=== PATIENT | female | born 1940 | race Caucasian/White ===

== ENCOUNTER 2016-11-23 13:17 | Day surgery (SDC) | payer MEDICARE ==
--- NOTE | 2016-11-24 16:11 | Operative Note ---
DATE OF PROCEDURE: 11/23/2016 PREOPERATIVE DIAGNOSIS: RECURRENT URINARY TRACT INFECTIONS. POSTOPERATIVE DIAGNOSIS: RECURRENT URINARY TRACT INFECTIONS. SURGEON: JOSE WETZEL M.D. PROCEDURE: CYSTOSCOPY. ANESTHESIA: LOCAL. INDICATIONS: This 76-year-old female with the above history. She already had a CT scan of the abdomen and pelvis showing no obvious urinary tract abnormality. She presents today for cystoscopy to complete her evaluation. PROCEDURE: Pre-Op informed consent was obtained. Antibiotics were given. The patient was brought to the Procedure Room at [facility], placed in a modified frog-leg position with the genitalia prepped and draped sterilely. Flexible cystoscopy was carried performed. The urethra and bladder were inspected carefully. Urine was immediately aspirated upon entry to the bladder and passed off the field for culture. The bladder was then inspected. No abnormality was seen. The ureteral orifices had normal appearance and positioning and each were effluxing clear urine. The scope was then retroflexed and no bladder neck abnormality was seen. The scope was then withdrawn. Pelvic examination was carried out. The bladder and vaginal vault appeared well- supported except for the patient does have some rectocele formation noted. The procedure was then terminated. The patient tolerated quite well. PLAN: The patient has no obvious source of recurring infection. She has not had any recurrence of her symptoms since our last visit and I have advised follow- up to review her symptoms in six months. We will follow the urine culture sent today as well. Jose Wetzel M.D. Date & Time cc: Dr. Tian Phoenix JOB NUMBER: [id number] [facility]
== END 2016-11-23 14:49 | disposition home or self-care (01) ==
LOC: HOP 13:17
PROVIDERS: ATTEND Urology
DX: Z87.440 Personal history of urinary (tract) infections (principal)

== ENCOUNTER 2017-03-13 15:58 | Emergency (ER) | payer MEDICARE ==
--- NOTE | 2017-03-13 16:28 | Emergency Department Record ---
History of Present Illness - General Chief complaint: Extremity Problem Stated complaint: RT ARM PAIN Time Seen by Provider: 03/13/17 16:23 Source: Patient Mode of Arrival: Ambulatory Limitations: No limitations - History of Present Illness Initial comments: 76 yo female presents after a fall while gardening. She injured her right wrist /forearm. She is right handed. She denies any other injury. No headache or neck pain. No lacerations. No numbness or tingling. No history of prior wrist fracture. MD Complaint: Extremity pain, Joint pain Onset/Timin -: Hour(s) Location: Right, Forearm History of Same: No Radiation: None Severity scale (1-10): 8 Quality: Aching Consistency: Constant Improves with: Nothing Worsens with: Palpation, Weight bearing Associated Symptoms: Denies other symptoms - Related Data Home Medications Medication Instructions Recorded Confirmed Last Taken Carvedilol [Coreg] 12.5 mg PO BID 12/28/15 03/13/17 Unknown Clopidogrel Bisulfate [Plavix] 75 mg PO DAILY 12/28/15 03/13/17 Unknown Furosemide [Furosemide] 20 mg PO BID 12/28/15 03/13/17 Unknown Isosorbide Mononitrate [Imdur] 30 mg PO DAILY 12/28/15 03/13/17 Unknown Lisinopril [Lisinopril] 2.5 mg PO DAILY 12/28/15 03/13/17 Unknown Lorazepam [Lorazepam] 0.5 mg PO DAILY 12/28/15 03/13/17 Unknown Nitroglycerin [Nitrostat] 0.4 mg SL DAILY PRN 12/28/15 03/13/17 Unknown Pantoprazole Sodium [Protonix] 40 mg PO BID 12/28/15 03/13/17 Unknown Temazepam [Restoril] 15 mg PO QHS 12/28/15 03/13/17 Unknown Verapamil HCl [Calan] 240 mg PO BID 12/28/15 03/13/17 05/27/16 Previous Rx's Medication Instructions Recorded Hydrocodone/Acetaminophen [[place] 1 each PO Q8H #12 tablet 03/13/17 5-325 Tablet] Allergies Allergy/AdvReac Type Severity Reaction Status Date / Time cinoxacin [From Cinobac] Allergy HYPERSENSIT Verified 12/28/15 15:10 IVITY clindamycin Allergy HYPERSENSIT Verified 12/28/15 15:10 IVITY clindamycin HCl Allergy HYPERSENSIT Verified 12/28/15 15:10 [From Cleocin] IVITY clindamycin palmitate HCl Allergy HYPERSENSIT Verified 12/28/15 15:10 [From Cleocin] IVITY clindamycin phosphate Allergy HYPERSENSIT Verified 12/28/15 15:10 [From Cleocin] IVITY polymyxin B Allergy HYPERSENSIT Verified 12/28/15 15:10 IVITY Sulfa (Sulfonamide Allergy HYPERSENSIT Verified 12/28/15 15:10 Antibiotics) IVITY trazodone Allergy HYPERSENSIT Verified 12/28/15 15:10 IVITY Travel Screening - Travel/Exposure Within Last 30 Days Have you traveled within the last 30 days?: No Review of Systems Constitutional: Denies: Chills, Fever, Malaise, Weakness Eyes: Denies: Eye discharge, Eye pain, Photophobia ENT: Denies: Congestion, Throat pain Respiratory: Denies: Cough, Dyspnea Cardiovascular: Denies: Chest pain, Syncope Endocrine: Denies: Fatigue Gastrointestinal: Denies: Abdominal pain, Diarrhea, Nausea, Vomiting Genitourinary: Denies: Dyspareunia, Dysuria, Urgency Musculoskeletal: Reports: As per HPI, Arthralgia Skin: Reports: As per HPI, Bruising. Denies: Change in color, Rash Neurological: Denies: Headache, Numbness, Vertigo, Weakness Psychiatric: Denies: Anxiety Hematological/Lymphatic: Denies: Blood Clots, Easy bleeding, Easy bruising, Swollen glands Past Medical History - SOCIAL HISTORY Smoking Status: Former smoker Alcohol Use: None Drug Use: None - RESPIRATORY Hx Respiratory Disorders: Yes Hx Pneumonia: Yes - CARDIOVASCULAR Hx Cardio Disorders: Yes Hx Abnormal EKG: Yes Hx Cardiac Cath: Yes Hx Heart Attack: Yes (2011) Hx Hypertension: Yes - NEURO Hx Neuro Disorders: Yes Hx Headaches: Yes Hx TIA: Yes (2011) - GI Hx GI Disorders: Yes Hx Reflux: Yes Hx Ulcer: Yes - Hx Genitourinary Disorders: Yes Hx Kidney Stones: Yes Hx UTI: Yes - ENDOCRINE Hx Endocrine Disorders: Yes Hx Thyroid Disease: Yes (hyper) - MUSCULOSKELETAL Hx Musculoskeletal Disorders: Yes - PSYCH Hx Psych Problems: Yes Hx Anxiety: Yes Hx Depression: Yes - HEMATOLOGY/ONCOLOGY Hx Hematology/Oncology Disorders: Yes Hx Blood Transfusions: Yes Hx Blood Transfusion Reaction: No Family Medical History Any Significant Family History?: No Physical Exam - General General Appearance: Alert, Oriented x3, Cooperative, No acute distress Limitations: No limitations - Head Head exam: Normal inspection. negative: Atraumatic, Normocephalic Head exam detail: negative: Abrasion, Contusion, Hematoma, Laceration - Eye Eye exam: Normal appearance, PERRL. negative: Conjunctival injection, Periorbital swelling - ENT ENT exam: Normal exam, Mucous membranes moist Ear exam: Normal external inspection Nasal Exam: Normal inspection Mouth exam: Normal external inspection Teeth exam: Normal inspection - Neck Neck exam: Normal inspection, Full ROM. negative: Tenderness - Respiratory Respiratory exam: Normal lung sounds bilaterally. negative: Respiratory distress - Cardiovascular Cardiovascular Exam: Regular rate, Normal rhythm, Normal heart sounds Peripheral Pulses: 2+: Radial (R) - GI/Abdominal GI/Abdominal exam: Soft. negative: Guarding, Rebound, Tenderness - Rectal Rectal exam: Deferred - exam: Deferred - Extremities Extremities exam: Full ROM, Normal capillary refill. negative: Normal inspection (swelling right wrist), Tenderness Image of Full Body: 1 - mild swelling with faint bruising and tenderness, no elbow, shoulder tenderness - Back Back exam: Reports: Normal inspection, Full ROM. Denies: CVA tenderness (R), CVA tenderness (L), Muscle spasm, Paraspinal tenderness, Rash noted, Tenderness , Vertebral tenderness - Neurological Neurological exam: Alert, Normal gait, Oriented X3. negative: Altered, Motor sensory deficit - Psychiatric Psychiatric exam: Normal affect, Normal mood. negative: Agitated, Anxious - Skin Skin exam: Dry, Intact, Normal color, Warm. negative: Cyanosis, Diaphoretic, Erythema Course Vital Signs 03/13/17 16:14 Temperature 98.6 F Pulse Rate 64 Respiratory 20 Rate Blood Pressure 152/90 Pulse Ox 96 - Reevaluation(s) Reevaluation #1: The XR was read as negative for fracture She will be placed in a velcro wrist splint for support She was advised to see her doctor in 10 days if any pain persists and to repeat the XR 03/13/17 18:02 Disposition Disposition: Discharge Clinical Impression: Sprain of wrist, right Qualifiers: Encounter type: initial encounter Qualified Code(s): S63.501A - Unspecified sprain of right wrist, initial encounter Disposition: Home, Self-Care Condition: (1) Good Instructions: Wrist Sprain (ED) Additional Instructions: Ice the wrist 2 times daily Use the splint for support and comfort You will need a follow up Xray in 10 days if any pain persists Use a stool softener if you need pain medication Prescriptions: Hydrocodone/Acetaminophen [[place] 5-325 Tablet] 1 each PO Q8H #12 tablet Forms: Patient Portal Access Time of Disposition: 18:06 Quality - Quality Measures Quality Measures: N/A - Blood Pressure Screening View Details: Yes Blood Pressure Classification: Hypertensive Reading Systolic Measurement: 152 Diastolic Measurement: 90 Screening for High Blood Pressure: < Pre-Hypertensive BP, F/U Documented > [ G8950] Pre-Hypertensive Follow-up Interventions: Referral to alternative/primary care provider.
[2017-03-13] MEDS: ACETAMINOPHEN 500 MG TABLET PO ONE (16:50)
--- NOTE | 2017-03-15 11:34 | RADIOLOGY REPORT ---
EXAM: RIGHT WRIST HISTORY: PATIENT FELL ON OUTSTRETCHED RIGHT HAND WITH RIGHT WRIST PAIN. TECHNIQUE: Three views of the right wrist were obtained. Comparison: No prior right wrist series, but comparison is made with the right hand series of 07/15/15. Encounter: Initial. FINDINGS: Some chondrocalcinosis is seen at the wrist also present on the prior hand series. 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 No definite acute fracture or dislocation of the right wrist identified, however, if symptoms persist, a follow-up study in ten to fourteen days time would be suggested to exclude a currently radiographically occult fracture. IMPRESSION: 1. CHONDROCALCINOSIS. 2. 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 3. NO DEFINITE ACUTE FRACTURE OF THE RIGHT WRIST IDENTIFIED. JOB NUMBER: [id number] MTDD
== END 2017-03-13 18:16 | disposition home or self-care (01) ==
LOC: ER 15:58
DX: S63.501A Unspecified sprain of right wrist, initial encounter (principal); W19.XXXA Unspecified fall, initial encounter; Y93.H2 Activity, gardening and landscaping
CPT/HCPCS: 99283

== ENCOUNTER 2017-03-17 10:00 | Emergency (ER) | payer MEDICARE ==
--- NOTE | 2017-03-17 10:26 | Emergency Department Record ---
History of Present Illness - General Chief complaint: Extremity Problem Stated complaint: RT WRIST INJURY Time Seen by Provider: 03/17/17 10:13 Source: Patient Mode of Arrival: Ambulatory Limitations: No limitations - History of Present Illness Initial comments: The patient is here due to increasing R wrist pain. She fell 4 days ago and injured her R wrist. The patient was seen in the ER and had neg xrays. Now the pain is not improved and may be worsening mildly. She denies any new falls or trauma. MD Complaint: Extremity pain Onset/Timin -: Days(s) Location: Right, Other History of Same: Yes Severity scale (1-10): 9 Consistency: Constant Improves with: Nothing Worsens with: Exertion Associated Symptoms: Denies other symptoms - Related Data Home Medications Medication Instructions Recorded Confirmed Last Taken Carvedilol [Coreg] 12.5 mg PO BID 12/28/15 03/17/17 Unknown Clopidogrel Bisulfate [Plavix] 75 mg PO DAILY 12/28/15 03/17/17 Unknown Furosemide [Furosemide] 20 mg PO BID 12/28/15 03/17/17 Unknown Isosorbide Mononitrate [Imdur] 30 mg PO DAILY 12/28/15 03/17/17 Unknown Lisinopril [Lisinopril] 2.5 mg PO DAILY 12/28/15 03/17/17 Unknown Lorazepam [Lorazepam] 0.5 mg PO DAILY 12/28/15 03/17/17 Unknown Nitroglycerin [Nitrostat] 0.4 mg SL DAILY PRN 12/28/15 03/17/17 Unknown Pantoprazole Sodium [Protonix] 40 mg PO BID 12/28/15 03/17/17 Unknown Temazepam [Restoril] 15 mg PO QHS 12/28/15 03/17/17 Unknown Verapamil HCl [Calan] 240 mg PO BID 12/28/15 03/17/17 05/27/16 Previous Rx's Medication Instructions Recorded Hydrocodone/Acetaminophen [[place] 1 each PO Q8H #12 tablet 03/13/17 5-325 Tablet] Hydrocodone/Acetaminophen [[place] 1 - 2 each PO QID #20 tablet 03/17/17 5-325 Tablet] Allergies Allergy/AdvReac Type Severity Reaction Status Date / Time cinoxacin [From Cinobac] Allergy HYPERSENSIT Verified 12/28/15 15:10 IVITY clindamycin Allergy HYPERSENSIT Verified 12/28/15 15:10 IVITY clindamycin HCl Allergy HYPERSENSIT Verified 12/28/15 15:10 [From Cleocin] IVITY clindamycin palmitate HCl Allergy HYPERSENSIT Verified 12/28/15 15:10 [From Cleocin] IVITY clindamycin phosphate Allergy HYPERSENSIT Verified 12/28/15 15:10 [From Cleocin] IVITY polymyxin B Allergy HYPERSENSIT Verified 12/28/15 15:10 IVITY Sulfa (Sulfonamide Allergy HYPERSENSIT Verified 12/28/15 15:10 Antibiotics) IVITY trazodone Allergy HYPERSENSIT Verified 12/28/15 15:10 IVITY Travel Screening - Travel/Exposure Within Last 30 Days Have you traveled within the last 30 days?: No Review of Systems Constitutional: Denies: Chills, Fever Eyes: Denies: Eye discharge ENT: Denies: Congestion Respiratory: Denies: Cough, Dyspnea Past Medical History - SOCIAL HISTORY Smoking Status: Former smoker Alcohol Use: None Drug Use: None - RESPIRATORY Hx Respiratory Disorders: Yes Hx Pneumonia: Yes - CARDIOVASCULAR Hx Cardio Disorders: Yes Hx Abnormal EKG: Yes Hx Cardiac Cath: Yes Hx Heart Attack: Yes (2011) Hx Hypertension: Yes - NEURO Hx Neuro Disorders: Yes Hx Headaches: Yes Hx TIA: Yes (2011) - GI Hx GI Disorders: Yes Hx Reflux: Yes Hx Ulcer: Yes - Hx Genitourinary Disorders: Yes Hx Kidney Stones: Yes Hx UTI: Yes - ENDOCRINE Hx Endocrine Disorders: Yes Hx Thyroid Disease: Yes (hyper) - MUSCULOSKELETAL Hx Musculoskeletal Disorders: Yes - PSYCH Hx Psych Problems: Yes Hx Anxiety: Yes Hx Depression: Yes - HEMATOLOGY/ONCOLOGY Hx Hematology/Oncology Disorders: Yes Hx Blood Transfusions: Yes Hx Blood Transfusion Reaction: No Family Medical History Any Significant Family History?: No Physical Exam - General General Appearance: Alert, Oriented x3, Cooperative, No acute distress - Head Head exam: Atraumatic, Normocephalic, Normal inspection - Eye Eye exam: Normal appearance, PERRL - Extremities Extremities exam: Full ROM (with mild pain to the R wrist.), Normal capillary refill, Tenderness (There is diffuse R dorsal carpal and distal radius and ulna tenderness.), Other (There is no snuff box tenderness.). negative: Normal inspection (There is slight swelling and bruising to the dorsal wrist and distal radius area.) Course Vital Signs 03/17/17 10:03 Temperature 98.6 F Pulse Rate 68 Respiratory 20 Rate Blood Pressure 187/72 Pulse Ox 98 - Reevaluation(s) Reevaluation #1: I explained to the patient that we will immobilize the extremity and have her F/ U with her PCP next week for recheck and a repeat xray. 03/17/17 10:23 Disposition Disposition: Discharge Clinical Impression: Sprain of wrist, right Qualifiers: Encounter type: sequela Qualified Code(s): S63.501S - Unspecified sprain of right wrist, sequela Disposition: Home, Self-Care Condition: (1) Good Instructions: Wrist Injury (ED) Additional Instructions: Please ice and elevate the wrist for 2 days and use the sling at all times. Please take the [place] for pain. Please see your PCP next week for recheck and please obtain another xray in 7-8 days to recheck the bones for any occult fx. Prescriptions: Hydrocodone/Acetaminophen [[place] 5-325 Tablet] 1 - 2 each PO QID #20 tablet Forms: Patient Portal Access Time of Disposition: 10:26 Quality - Quality Measures Quality Measures: N/A - Blood Pressure Screening View Details: Yes Blood Pressure Classification: Hypertensive Reading Systolic Measurement: 187 Diastolic Measurement: 72 Screening for High Blood Pressure: < Pre-Hypertensive BP, F/U Documented > [ G8950] Pre-Hypertensive Follow-up Interventions: Follow-up with rescreen every year.
== END 2017-03-17 10:41 | disposition home or self-care (01) ==
LOC: ER 10:00
DX: S63.501A Unspecified sprain of right wrist, initial encounter (principal); W19.XXXA Unspecified fall, initial encounter
CPT/HCPCS: 99283

== ENCOUNTER 2017-04-27 09:47 | Emergency (ER) | payer MEDICARE ==
[2017-04-27] MEDS ORDERED: 0.9 % SODIUM CHLORIDE 1000ML 1,000 ML IV PRN (09:52)
[2017-04-27 10:05] LABS: BASO % 0.6 % (0-6); EOS % 4.3 % (0-6); GRAN % 71.6 % (47-80); HEMATOCRIT 42.6 % (35.0-47.0); HEMOGLOBIN 13.5 gm/dl (11.6-16.0); LYMPH % 15.1 % (16-45); MEAN CORPUSCULAR HEMOGLOBIN 29.5 pg (27-33); MEAN CORPUSCULAR HGB CONC 31.7 g/dl (32-36); MEAN PLATELET VOLUME 9.4 fl (7.4-10.4); MONO % 8.4 % (0-9); PLATELET COUNT 285 K/uL (130-400); RED BLOOD COUNT 4.58 M/uL (3.80-5.40); RED CELL DISTRIBUTION WIDTH 13.8 % (11.5-14.5); WHITE BLOOD COUNT W/O DIFF 8.6 K/uL (4.2-12.2)
--- NOTE | 2017-04-27 10:12 | Emergency Department Record ---
History of Present Illness - General Chief Complaint: Numbness Stated Complaint: possible stroke Time Seen by Provider: 04/27/17 09:52 Source: Patient, RN notes reviewed Mode of Arrival: Wheelchair - History of Present Illness Initial Comments: patient developed a headache at 9:15am today and incordination of the right hand and arm and slurred speech. She also said her right leg was weak and some numbness in the right leg. 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 NO other CVA symptoms since than. The patient stated symptoms improved after 30 minutes and upon arrival only had numbness in the right arm and right leg and some incoordination of the right hand and some vertigo with moving around. Onset/Timin -: Minutes(s) Location: Ataxia, Right arm History of same: Yes Place: Home Severity: Moderate - [place] Coma Scale Eye Response: (4) Open spontaneously Motor Response: (6) Obeys commands Verbal Response: (5) Oriented [place] Total: 15 - Symptoms of Stroke Onset of Symptoms Date: 04/27/17 Onset of Symptoms Time: 09:15 Symptoms of stroke: Numbness, Slurred Speech, Speech Dysfunction, Unsteady When Walking - Related Data Home Medications: Previous Rx's Medication Instructions Recorded Hydrocodone/Acetaminophen [[place] 1 each PO Q8H #12 tablet 03/13/17 5-325 Tablet] Hydrocodone/Acetaminophen [[place] 1 - 2 each PO QID #20 tablet 03/17/17 5-325 Tablet] Allergies/Adverse Reactions: Allergies Allergy/AdvReac Type Severity Reaction Status Date / Time cinoxacin [From Cinobac] Allergy HYPERSENSIT Verified 04/27/17 09:57 IVITY clindamycin Allergy HYPERSENSIT Verified 04/27/17 09:57 IVITY clindamycin HCl Allergy HYPERSENSIT Verified 04/27/17 09:57 [From Cleocin] IVITY clindamycin palmitate HCl Allergy HYPERSENSIT Verified 04/27/17 09:57 [From Cleocin] IVITY clindamycin phosphate Allergy HYPERSENSIT Verified 04/27/17 09:57 [From Cleocin] IVITY polymyxin B Allergy HYPERSENSIT Verified 04/27/17 09:57 IVITY Sulfa (Sulfonamide Allergy HYPERSENSIT Verified 04/27/17 09:57 Antibiotics) IVITY trazodone Allergy HYPERSENSIT Verified 04/27/17 09:57 IVITY Travel Screening - Travel/Exposure Within Last 30 Days Have you traveled within the last 30 days?: No - Travel/Exposure Within Last Year Have you traveled outside the [place] in the last year?: No - Additonal Travel Details Have you been exposed to anyone with a communicable illness?: No Review of Systems Reviewed: No additional complaints except as noted below Constitutional: Reports: As per HPI. Denies: Chills, Fever, Malaise, Night sweats, Weakness, Weight change Eyes: Reports: As per HPI. Denies: Eye discharge, Eye pain, Photophobia, Vision change ENT: Reports: As per HPI. Denies: Congestion, Dental pain, Ear pain, Epistaxis , Hearing loss, Throat pain Respiratory: Reports: As per HPI. Denies: Cough, Dyspnea, Hemoptysis, Stridor, Wheezes Cardiovascular: Reports: As per HPI. Denies: Arrhythmia, Chest pain, Dyspnea on exertion, Edema, Murmurs, Orthopnea, Palpitations, Paroxysmal nocturnal dyspnea, Rheumatic Fever, Syncope Endocrine: Reports: As per HPI. Denies: Fatigue, Heat or cold intolerance, Polydipsia, Polyuria Gastrointestinal: Reports: As per HPI. Denies: Abdominal pain, Constipation, Diarrhea, Hematemesis, Hematochezia, Melena, Nausea, Vomiting Genitourinary: Reports: As per HPI. Denies: Abnormal menses, Discharge, Dyspareunia, Dysuria, Frequency, Hematuria, Incontinence, Retention, Urgency Musculoskeletal: Reports: As per HPI. Denies: Arthralgia, Back pain, Gout, Joint swelling, Myalgia, Neck pain Skin: Reports: As per HPI. Denies: Bruising, Change in color, Change in hair/ nails, Lesions, Pruritus, Rash Neurological: Reports: As per HPI, Headache, Numbness, Weakness (right side). Denies: Abnormal gait, Confusion, Paresthesias, Seizure, Tingling, Tremors, Vertigo Psychiatric: Reports: As per HPI. Denies: Anxiety, Auditory hallucinations, Depression, Homicidal thoughts, Suicidal thoughts, Visual hallucinations Hematological/Lymphatic: Reports: As per HPI. Denies: Anemia, Blood Clots, Easy bleeding, Easy bruising, Swollen glands Past Medical History - SOCIAL HISTORY Smoking Status: Former smoker Alcohol Use: None Drug Use: None - RESPIRATORY Hx Respiratory Disorders: Yes Hx Pneumonia: Yes - CARDIOVASCULAR Hx Cardio Disorders: Yes Hx Abnormal EKG: Yes Hx Cardiac Cath: Yes Hx Heart Attack: Yes (2011) Hx Hypertension: Yes - NEURO Hx Neuro Disorders: Yes Hx Headaches: Yes Hx TIA: Yes (2011) - GI Hx GI Disorders: Yes Hx Reflux: Yes Hx Ulcer: Yes - Hx Genitourinary Disorders: Yes Hx Kidney Stones: Yes Hx UTI: Yes - ENDOCRINE Hx Endocrine Disorders: Yes Hx Thyroid Disease: Yes (hyper) - MUSCULOSKELETAL Hx Musculoskeletal Disorders: Yes - PSYCH Hx Psych Problems: Yes Hx Anxiety: Yes Hx Depression: Yes - HEMATOLOGY/ONCOLOGY Hx Hematology/Oncology Disorders: Yes Hx Blood Transfusions: Yes Hx Blood Transfusion Reaction: No Family Medical History Any Significant Family History?: Yes Physical Exam - General General Appearance: Alert, Oriented x3, Cooperative, Mild distress - Head Head exam: Normal inspection - Eye Eye exam: Normal appearance, PERRL Pupils: Normal accommodation - ENT ENT exam: Normal exam, Mucous membranes moist, Normal external ear exam, Normal orophraynx, TM's normal bilaterally Ear exam: Normal external inspection. negative: External canal tenderness Nasal Exam: Normal inspection. negative: Discharge, Sinus tenderness Mouth exam: Normal external inspection, Tongue normal Teeth exam: Normal inspection. negative: Dental caries Throat exam: Normal inspection. negative: Tonsillar erythema, Tonsillar exudate - Neck Neck exam: Normal inspection, Full ROM. negative: Tenderness - Respiratory Respiratory exam: Normal lung sounds bilaterally. negative: Respiratory distress - Cardiovascular Cardiovascular Exam: Regular rate, Normal rhythm, Normal heart sounds - GI/Abdominal GI/Abdominal exam: Soft, Normal bowel sounds. negative: Tenderness - Rectal Rectal exam: Deferred - exam: Deferred - Extremities Extremities exam: Normal inspection, Full ROM, Normal capillary refill. negative: Tenderness - Back Back exam: Reports: Normal inspection, Full ROM. Denies: Muscle spasm, Rash noted, Tenderness - Neurological Neurological exam: Alert, Normal gait, Oriented X3, Reflexes normal - Psychiatric Psychiatric exam: Normal affect, Normal mood - Skin Skin exam: Dry, Intact, Normal color, Warm Course Vital Signs 04/27/17 09:49 Temperature 98.7 F Pulse Rate 79 Respiratory 18 Rate Blood Pressure 180/100 Pulse Ox 99 patients symptoms are improving in the ED about one hour after they started - Reevaluation(s) Reevaluation #1: discussed case with Dr. Mena and the ED physician Dr. Turner at [facility] and will transfer to the ED. 04/27/17 10:45 04/27/17 10:51 Reevaluation #2: repeat neuro and to stand on toes equally, No drift of arms and leg ,She still has incoordination of the right arm and her balance off slight moving to the coumade 04/27/17 10:52 04/27/17 10:59 Medical Decision Making - Data Complexity MDM Data: Labs Ordered and/or Reviewed, X-Ray Ordered and/or Reviewed (CT scan neg with some old lucunar spots with one in left thalamus), EKG Ordered and/or Reviewed (NSR no acute changes) - Lab Data Result diagrams: 04/27/17 09:55 04/27/17 09:55 Lab Results 04/27/17 Range/Units 09:55 WBC 8.6 (4.2-12.2) K/uL RBC 4.58 (3.80-5.40) M/uL Hgb 13.5 (11.6-16.0) gm/dl Hct 42.6 (35.0-47.0) % MCV 93.0 (81-97) fl MCH 29.5 (27-33) pg MCHC 31.7 L (32-36) g/dl RDW 13.8 (11.5-14.5) % Plt Count 285 (130-400) K/uL MPV 9.4 (7.4-10.4) fl Gran % 71.6 (47-80) % Lymphocytes % 15.1 L (16-45) % Monocytes % 8.4 (0-9) % Eosinophils % 4.3 (0-6) % Basophils % 0.6 (0-6) % Disposition Clinical Impression: CVA (cerebral vascular accident) Qualifiers: CVA mechanism: unspecified Qualified Code(s): I63.9 - Cerebral infarction, unspecified Headache Qualifiers: Headache type: unspecified Headache chronicity pattern: acute headache Intractability: not intractable Qualified Code(s): R51 - Headache Disposition: Acute Care Hospital Transfer Condition: (2) Stable Forms: Patient Portal Access Time of Disposition: 10:54 Quality - Quality Measures Quality Measures: N/A - Blood Pressure Screening Does Patient Have Any of the Following: No Blood Pressure Classification: Hypertensive Reading Systolic Measurement: 180 Diastolic Measurement: 100 Screening for High Blood Pressure: Patient Exclusion, Hx of HTN [G9744]
[2017-04-27 10:19] LABS: INR 0.94; PARTIAL THROMBOPLASTIN TIME 26.9 SECONDS (24.5-39.1); PROTHROMBIN TIME (PATIENT) 10.1 SECONDS (9.5-12.1)
[2017-04-27 10:22] LABS: ACETAMINOPHEN < 10.0 ug/mL (10.0-30.0); BLOOD UREA NITROGEN 25.1 mg/dL (17.4-49.2); CREATININE 0.9 mg/dL (0.5-0.9); EST GLOMERULAR FILTRATION RATE > 60 mL/min; GLUCOSE,RANDOM 107 mg/dL (74-109)
[2017-04-27] MEDS ORDERED: ACETAMINOPHEN 325 MG TAB PO ONE (10:28)
[2017-04-27 10:37] LABS: URINE APPEARANCE SL CLOUDY; URINE BILIRUBIN NEGATIVE (NEGATIVE); URINE BLOOD TRACE-I (NEGATIVE); URINE COLOR YELLOW; URINE GLUCOSE (UA) NEGATIVE (NEGATIVE); URINE KETONE NEGATIVE (NEGATIVE); URINE LEUKOCYTE ESTERASE MODERATE (NEGATIVE); URINE NITRITE POSITIVE (NEGATIVE); URINE PROTEIN NEGATIVE (NEGATIVE); URINE UROBILINOGEN 0.2 E.U./dL (0.20 - 1.00)
[2017-04-27 10:42] LABS: AMPHETAMINE SCREEN URINE NOT DETECTED; BARBITURATE SCREEN URINE NOT DETECTED; BENZODIAZEPINE SCREEN URINE DETECTED; COCAINE SCREEN URINE NOT DETECTED; METHADONE SCREEN URINE NOT DETECTED; METHAMPHETAMINE SCREEN NOT DETECTED; OPIATE SCREEN URINE NOT DETECTED; OXYCODONE SCREEN URINE NOT DETECTED; PHENCYCLIDINE SCREEN URINE NOT DETECTED; PROPOXYPHENE SCREEN URINE NOT DETECTED; THC SCREEN URINE NOT DETECTED; TRICYCLIC ANTIDEPRESSANT SCRN NOT DETECTED
[2017-04-27 10:53] LABS: URINE EPITHELIAL CELLS 0 - 2 (FEW); URINE RBC 0 - 2 (NONE SEEN); URINE WBC 21 - 35 (0-2/hpf)
[2017-04-27 10:54] LABS: URINE BACTERIA 1+
--- NOTE | 2017-04-27 22:22 | CT SCAN REPORT ---
EXAM: CT SCAN HEAD WO CONTRAST HISTORY: THE TECHNOLOGISTS WORKSHEET STATES LEFT HAND WEAKNESS. THE COMPUTER ORDER STATES RIGHT ARM AND LEG WEAKNESS WITH HEADACHE. TECHNIQUE: Routine noncontrast CT examination of the head. COMPARISON: CT head without contrast dated 09/08/10. FINDINGS: The subarachnoid spaces are mildly dilated consistent with atrophy. The ventricles are nonenlarged. Mild to moderate periventricular and subcortical white matter lucencies are scattered within each cerebral hemisphere consistent with chronic small vessel ischemia. These have mildly progressed since 09/08/10. There is redemonstration of a prominent perivascular space vs. old lacunar infarct in the right parietal white matter, stable. There is redemonstration of a hypodense focus within the anterior left thalamus measuring approximately 6 mm. This appears slightly more pronounced in the interval. New since the prior examination is a hypodense, CSF-like focus in the lateral right thalamus. This measures 6 x 7 mm. This is consistent with an age- indeterminate, though probably chronic, lacunar infarct. No other area of abnormally increased or decreased attenuation is noted throughout the brain substance. No abnormal extraaxial fluid collection is seen. No definite middle cerebral artery asymmetry is present. There is atherosclerotic calcification of the distal internal carotid arteries and distal vertebral arteries. There is retention cyst formation within the left sphenoid sinus. The visualized paranasal sinuses and mastoid air cells are otherwise clear. Post cataract surgery changes are noted bilaterally. The orbits are otherwise unremarkable. IMPRESSION: 1. NO CT EVIDENCE OF ACUTE MAJOR VESSEL INFARCT. 2. HYPODENSE FOCUS WITHIN THE MEDIAL LEFT THALAMUS APPEARS SLIGHTLY MORE PRONOUNCED THAN ON THE PRIOR EXAMINATION. ACUTE EXTENSION OF AN OLD LACUNAR INFARCT WOULD BE DIFFICULT TO EXCLUDE. 3. THERE IS A NEW CSF-LIKE DENSITY FOCUS WITHIN THE LATERAL RIGHT THALAMUS MEASURING 7 MM IN MAXIMUM DIAMETER. 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 THIS IS NOT PRESENT ON THE PRIOR EXAM. 4. MILD GENERALIZED ATROPHY. WHITE MATTER LUCENCIES IN EACH CEREBRAL HEMISPHERE ARE SLIGHTLY MORE PRONOUNCED IN THE INTERVAL. THESE ARE CONSISTENT WITH CHRONIC SMALL VESSEL ISCHEMIA. 5. PROMINENT PERIVASCULAR SPACE VS. OLD LACUNAR INFARCT REDEMONSTRATED IN THE LEFT PARIETAL LOBE. 6. RETENTION CYST FORMATION IN THE LEFT SPHENOID SINUS. JOB NUMBER: [id number] [facility]
--- NOTE | 2017-04-27 22:27 | RADIOLOGY REPORT ---
EXAM: CHEST AP or PA ONLY HISTORY: RIGHT ARM AND LEG WEAKNESS. HEADACHE. TECHNIQUE: A single mobile upright view of the chest is obtained. COMPARISON: Two-view chest radiographic examination dated 01/23/08. FINDINGS: Post median sternotomy changes are now identified. The heart is not enlarged. No pulmonary venous hypertension is seen. The thoracic aorta is tortuous and atherosclerotic. Linear scarring is again noted in the lateral lower left lung. The lungs and pleural spaces are otherwise clear. IMPRESSION: 1. NO EVIDENCE OF ACUTE CARDIOPULMONARY DISEASE. 2. INTERVAL MEDIAN STERNOTOMY. 3. LINEAR SCARRING REDEMONSTRATED IN THE LOWER LEG LUNG. JOB NUMBER: [id number] [facility]
== END 2017-04-27 11:44 | disposition short-term general hospital (02) ==
LOC: ER 09:47
DX: I63.9 Cerebral infarction, unspecified (principal); R27.8 Other lack of coordination; R51 Headache; I10 Essential (primary) hypertension; I25.2 Old myocardial infarction; Z87.891 Personal history of nicotine dependence; Z79.899 Other long term (current) drug therapy
CPT/HCPCS: 99285 ×2; 85025; 85730; 85610; 80048; 81001; 80305; 71010; 70450; 93005; 93010; G0480; 80329

== ENCOUNTER 2017-05-28 08:31 | Emergency (ER) | payer MEDICARE ==
--- NOTE | 2017-05-28 09:00 | Emergency Department Record ---
History of Present Illness - General Chief Complaint: Dizziness Stated Complaint: DIZZY,UTI Time Seen by Provider: 05/28/17 08:41 Source: Patient Mode of Arrival: Ambulatory Limitations: No limitations - History of Present Illness Initial Comments: The patient is here due to 2 different complaints. She has had mild dysuria for a couple of days and also has felt mildly "dizzy" for 2-3 days. She describes the dizziness as feeling like her balance is off at times. She has been able to walk and has no fallen or injured herself but states she just feels like her balance is not 100% normal for her. She has recently stopped her Plavix due to needing an Upper and Lower GI scope in 4 days. The patient denies any LEIJA, CP, SOB, arm or leg numbness or weakness, and any trouble talking or swallowing. There are also no visual changes. The patient was admitted to [facility] one month ago for a possible CVA and was told that she did not have a stroke at discharge. She has had a hx of a CVA 5 years ago after a MT. MD Complaint: Dizziness, Other Onset/Timin -: Days(s) Timing: Unsure Description: Difficulty walking, Off-balance History of Same: Yes History of Trauma: No - [place] Coma Scale Eye Response: (4) Open spontaneously Motor Response: (6) Obeys commands Verbal Response: (5) Oriented [place] Total: 15 - Related Data Previous Rx's Medication Instructions Recorded Hydrocodone/Acetaminophen [[place] 1 each PO Q8H #12 tablet 03/13/17 5-325 Tablet] Hydrocodone/Acetaminophen [[place] 1 - 2 each PO QID #20 tablet 03/17/17 5-325 Tablet] Allergies Allergy/AdvReac Type Severity Reaction Status Date / Time cinoxacin [From Cinobac] Allergy HYPERSENSIT Verified 04/27/17 09:57 IVITY clindamycin Allergy HYPERSENSIT Verified 04/27/17 09:57 IVITY clindamycin HCl Allergy HYPERSENSIT Verified 04/27/17 09:57 [From Cleocin] IVITY clindamycin palmitate HCl Allergy HYPERSENSIT Verified 04/27/17 09:57 [From Cleocin] IVITY clindamycin phosphate Allergy HYPERSENSIT Verified 04/27/17 09:57 [From Cleocin] IVITY polymyxin B Allergy HYPERSENSIT Verified 04/27/17 09:57 IVITY Sulfa (Sulfonamide Allergy HYPERSENSIT Verified 04/27/17 09:57 Antibiotics) IVITY trazodone Allergy HYPERSENSIT Verified 04/27/17 09:57 IVITY Travel Screening - Travel/Exposure Within Last 30 Days Have you traveled within the last 30 days?: No - Travel/Exposure Within Last Year Have you traveled outside the [place] in the last year?: No - Additonal Travel Details Have you been exposed to anyone with a communicable illness?: No - Travel Symptoms Symptom Screening: None Review of Systems Constitutional: Denies: Chills, Fever Eyes: Denies: Eye discharge ENT: Denies: Congestion Respiratory: Denies: Cough, Dyspnea Past Medical History - SOCIAL HISTORY Smoking Status: Former smoker Alcohol Use: None Drug Use: None - RESPIRATORY Hx Respiratory Disorders: Yes Hx Pneumonia: Yes - CARDIOVASCULAR Hx Cardio Disorders: Yes Hx Abnormal EKG: Yes Hx Cardiac Cath: Yes Hx Heart Attack: Yes (2011) Hx Hypertension: Yes - NEURO Hx Neuro Disorders: Yes Hx Headaches: Yes Hx TIA: Yes (2011) - GI Hx GI Disorders: Yes Hx Reflux: Yes Hx Ulcer: Yes - Hx Genitourinary Disorders: Yes Hx Kidney Stones: Yes Hx UTI: Yes - ENDOCRINE Hx Endocrine Disorders: Yes Hx Thyroid Disease: Yes (hyper) - MUSCULOSKELETAL Hx Musculoskeletal Disorders: Yes - PSYCH Hx Psych Problems: Yes Hx Anxiety: Yes Hx Depression: Yes - HEMATOLOGY/ONCOLOGY Hx Hematology/Oncology Disorders: Yes Hx Blood Transfusions: Yes Hx Blood Transfusion Reaction: No Family Medical History Any Significant Family History?: No Physical Exam - General General Appearance: Alert, Oriented x3, Cooperative, No acute distress - Head Head exam: Atraumatic, Normocephalic, Normal inspection - Eye Eye exam: Normal appearance, PERRL, EOMI. negative: Nystagmus - ENT ENT exam: Normal exam, Mucous membranes moist, Normal external ear exam, Normal orophraynx, TM's normal bilaterally Throat exam: Normal inspection. negative: Tonsillar erythema, Tonsillar exudate - Neck Neck exam: Normal inspection, Full ROM, Other (Neg carotid bruits.). negative: Lymphadenopathy, Meningismus, Tenderness - Respiratory Respiratory exam: Normal lung sounds bilaterally. negative: Respiratory distress - Cardiovascular Cardiovascular Exam: Regular rate, Normal rhythm, Normal heart sounds - GI/Abdominal GI/Abdominal exam: Soft, Normal bowel sounds. negative: Tenderness - Extremities Extremities exam: Normal inspection, Full ROM, Normal capillary refill. negative: Tenderness - Neurological Neurological exam: Alert, Normal gait (Neg Drift or [place] or ataxia.), Oriented X3, Other (Finger to nose testing is Neg with the R hand and slightly positive with the L hand. The patient states the L hand abnormalities are chronic and NOT new now and have been present since the stroke in 2011.). negative: Abnormal gait, Altered, Motor sensory deficit Course Vital Signs 05/28/17 08:34 Temperature 97.6 F Pulse Rate 69 Respiratory 18 Rate Blood Pressure 180/102 Pulse Ox 95 - Reevaluation(s) Reevaluation #1: The patient is doing well. Her BP is improved and she is feeling well. 05/28/17 09:46 Reevaluation #2: The patient is doing well. She feels well sitting on the bed and is relieved she does not have a UTI. She is concerned about being off the Plavix for her Upper and Lower GI tests in 4 days so I did recommend a head CT and a Neurology Consult because of the possibility of a Cerebellar CVA but she is refusing. The patient did have [address], a brain CTA, and brain MRI 4 weeks ago that did not demonstrate any acute changes. Because of that she is refusing the test and referral. I explained to her that she could have had a small stroke but it will be extremely difficult to tell without an MRI which we are not able to do here. The patient understands the risks but is still refusing the transfer and consult. 05/28/17 10:06 Reevaluation #3: The patient is doing well and is at her baseline. I did recommend taking a full dose ASA daily since she is off her Plavix if OK with her GI specialists. I did offer to call her GI people but she will do that later today. 05/28/17 10:27 Reevaluation #4: I did consult with Dr. Bonds who is concrete boom operator for the patient's GI doctor. He stated taking an ASA daily will be OK and she should stop the day prior to the EGD and Colonoscopy. I did discuss this with the patient and she will comply. 05/28/17 10:47 Medical Decision Making - Lab Data Result diagrams: 05/28/17 08:57 10/14/17 08:57 Disposition Disposition: Discharge Clinical Impression: Dizziness Disposition: Home, Self-Care Condition: (1) Good Instructions: Dizziness (ED) Additional Instructions: Please continue your regular medicines as previously directed. Please see your PCP this week for re check. Return to the ER for any problems. Please take a full dose aspirin daily until your restart your Plavix if OK with your GI specialists. Please call them to make sure they are OK with that. Forms: Patient Portal Access Time of Disposition: 10:21 Quality - Quality Measures Quality Measures: N/A - Blood Pressure Screening View Details: Yes Does Patient Have Any of the Following: Active Dx of HTN Blood Pressure Classification: Pre-Hypertensive BP Reading Systolic Measurement: 160 Diastolic Measurement: 80 Screening for High Blood Pressure: Patient Exclusion, Hx of HTN [G9744]
[2017-05-28 09:12] LABS: BASO % 0.6 % (0-6); EOS % 5.8 % (0-6); GRAN % 59.8 % (47-80); HEMATOCRIT 38.9 % (35.0-47.0); HEMOGLOBIN 12.5 gm/dl (11.6-16.0); LYMPH % 23.4 % (16-45); MEAN CELL VOLUME 92.4 fl (81-97); MEAN CORPUSCULAR HEMOGLOBIN 29.7 pg (27-33); MEAN CORPUSCULAR HGB CONC 32.1 g/dl (32-36); MEAN PLATELET VOLUME 9.7 fl (7.4-10.4); MONO % 10.4 % (0-9); PLATELET COUNT 288 K/uL (130-400); RED BLOOD COUNT 4.21 M/uL (3.80-5.40); RED CELL DISTRIBUTION WIDTH 13.8 % (11.5-14.5); URINE APPEARANCE CLEAR; URINE BILIRUBIN NEGATIVE (NEGATIVE); URINE BLOOD NEGATIVE (NEGATIVE); URINE COLOR YELLOW; URINE GLUCOSE (UA) NEGATIVE (NEGATIVE); URINE KETONE NEGATIVE (NEGATIVE); URINE LEUKOCYTE ESTERASE NEGATIVE (NEGATIVE); URINE NITRITE NEGATIVE (NEGATIVE); URINE PROTEIN NEGATIVE (NEGATIVE); URINE UROBILINOGEN 0.2 E.U./dL (0.20 - 1.00); WHITE BLOOD COUNT W/O DIFF 6.2 K/uL (4.2-12.2)
[2017-05-28 10:14] LABS: ALB/GLOB RATIO 1.3 (1.1-1.8); ALBUMIN 3.9 g/dL (4.0-5.0); ALKALINE PHOSPHATASE 70 U/L (35-104); ALT/SGPT 8 U/L (<33); AST/SGOT 13 U/L (10.0-35.0); BLOOD UREA NITROGEN 14 mg/dL (8-23); CREATININE 0.8 mg/dL (0.5-0.9); EST GLOMERULAR FILTRATION RATE > 60 mL/min; GLUCOSE,RANDOM 111 mg/dL (74-109); TOTAL PROTEIN 6.9 g/dL (6.6-8.7)
== END 2017-05-28 10:27 | disposition home or self-care (01) ==
LOC: ER 08:31
DX: R42 Dizziness and giddiness (principal); R60.0 Localized edema; I25.2 Old myocardial infarction; I10 Essential (primary) hypertension; F17.210 Nicotine dependence, cigarettes, uncomplicated; Z86.73 Personal history of transient ischemic attack (TIA), and cerebral infarction without residual deficits
CPT/HCPCS: 80053; 81003; 85025; 99283

== ENCOUNTER 2017-08-19 10:15 | Emergency (ER) | payer MEDICARE ==
--- NOTE | 2017-08-19 10:45 | Emergency Department Record ---
History of Present Illness - General Chief complaint: Weakness Stated complaint: POSSIBLE STROKE Time Seen by Provider: 08/19/17 10:34 Source: Patient Mode of Arrival: Ambulatory Limitations: No limitations - History of Present Illness Initial comments: The patient is here due to developing L hand weakness and incoordination last night at 8pm along with a mild facial droop. She also has had trouble with her balance since the onset. There has been no reported CP, SOB, LEIJA, visual changes or trauma. The patient states the facial droop has improved and the hand also has improved slightly but has not gotten back to normal. The patient has had a hx of multiple CVA's in the past with very mild L sided weakness but now is significantly worse. She is NOT a TPA candidate due to the time of onset being 14 hours. MD Complaint: Focal weakness Onset/Timin -: Hour(s) Location: Generalized Severity: Moderate Severity scale (1-10): 1 - [place] Coma Scale Eye Response: (4) Open spontaneously Motor Response: (6) Obeys commands Verbal Response: (5) Oriented [place] Total: 15 - Symptoms of Stroke Onset of Symptoms Date: 08/18/17 Onset of Symptoms Time: 20:00 Symptoms of stroke: Slurred Speech, Speech Dysfunction, Unable to Think Clearly , Unsteady When Walking - Related Data Home Medications Medication Instructions Recorded Confirmed Last Taken Atorvastatin Calcium 10 mg PO DAILY 08/19/17 08/19/17 08/19/17 Allergies Allergy/AdvReac Type Severity Reaction Status Date / Time cinoxacin [From Cinobac] Allergy HYPERSENSIT Verified 08/19/17 10:29 IVITY clindamycin Allergy HYPERSENSIT Verified 08/19/17 10:29 IVITY clindamycin HCl Allergy HYPERSENSIT Verified 08/19/17 10:29 [From Cleocin] IVITY clindamycin palmitate HCl Allergy HYPERSENSIT Verified 08/19/17 10:29 [From Cleocin] IVITY clindamycin phosphate Allergy HYPERSENSIT Verified 08/19/17 10:29 [From Cleocin] IVITY polymyxin B Allergy HYPERSENSIT Verified 08/19/17 10:29 IVITY Sulfa (Sulfonamide Allergy HYPERSENSIT Verified 08/19/17 10:29 Antibiotics) IVITY trazodone Allergy HYPERSENSIT Verified 08/19/17 10:29 IVITY Travel Screening - Travel/Exposure Within Last 30 Days Have you traveled within the last 30 days?: No - Travel/Exposure Within Last Year Have you traveled outside the [place] in the last year?: No - Additonal Travel Details Have you been exposed to anyone with a communicable illness?: No - Travel Symptoms Symptom Screening: None Review of Systems Constitutional: Denies: Chills, Fever, Other Eyes: Denies: Eye discharge ENT: Denies: Congestion Respiratory: Denies: Cough, Dyspnea Past Medical History - SOCIAL HISTORY Smoking Status: Former smoker Alcohol Use: None Drug Use: None - RESPIRATORY Hx Respiratory Disorders: Yes Hx Pneumonia: Yes - CARDIOVASCULAR Hx Cardio Disorders: Yes Hx Abnormal EKG: Yes Hx Cardiac Cath: Yes Hx Heart Attack: Yes (2011) Hx Hypertension: Yes - NEURO Hx Neuro Disorders: Yes Hx CVA: Yes (after heart attack and fall 2016) Hx Headaches: Yes Hx TIA: Yes (2011) - GI Hx GI Disorders: Yes Hx Reflux: Yes Hx Ulcer: Yes - Hx Genitourinary Disorders: Yes Hx Kidney Stones: Yes Hx UTI: Yes - ENDOCRINE Hx Endocrine Disorders: Yes Hx Thyroid Disease: Yes (hyper) - MUSCULOSKELETAL Hx Musculoskeletal Disorders: Yes - PSYCH Hx Psych Problems: Yes Hx Anxiety: Yes Hx Depression: Yes - HEMATOLOGY/ONCOLOGY Hx Hematology/Oncology Disorders: Yes Hx Blood Transfusions: Yes Hx Blood Transfusion Reaction: No Family Medical History Any Significant Family History?: Yes Physical Exam - General General Appearance: Alert, Oriented x3, Cooperative, No acute distress - Head Head exam: Atraumatic, Normocephalic, Normal inspection - Eye Eye exam: Normal appearance, PERRL, EOMI - ENT ENT exam: Other (mild R facial droop.). negative: Normal exam Throat exam: Normal inspection. negative: Tonsillar erythema, Tonsillar exudate - Neck Neck exam: Normal inspection, Full ROM. negative: Tenderness - Respiratory Respiratory exam: Normal lung sounds bilaterally. negative: Respiratory distress - Cardiovascular Cardiovascular Exam: Regular rate, Normal rhythm, Normal heart sounds - GI/Abdominal GI/Abdominal exam: Soft, Normal bowel sounds. negative: Tenderness - Extremities Extremities exam: Normal inspection, Full ROM, Normal capillary refill. negative: Tenderness - Neurological Neurological exam: Abnormal gait, Alert, Motor sensory deficit (There is L arm and hand abnormal finger to nose testing.), Oriented X3. negative: Normal gait Course Vital Signs 08/19/17 10:23 Temperature 98.0 F Pulse Rate 73 Respiratory 15 Rate Blood Pressure 159/73 Pulse Ox 93 L - Reevaluation(s) Reevaluation #1: The patient is doing OK at this time. There has been no change in her condition or L arm uncoordination. Her Head CT was without any acute changes so we will give the patient an ASA. I did discuss the case with Dr. Sears at [facility] and he does accept the patient for a direct admit to the stroke team. 08/19/17 12:15 08/19/17 13:30 The patient is doing very well. There are no changes to her Neuro status. We are still waiting on a bed for her at [facility]. Reevaluation #2: The patient is doing well. She denies any new symptoms or issues. 08/19/17 15:00 Medical Decision Making - Management Options MDM Management: Additional Work-up Planned (e.g. ADM/Transfer/OP Study) - Data Complexity MDM Data: Labs Ordered and/or Reviewed (Chem 7: Please see faxed results.), X- Ray Ordered and/or Reviewed, EKG Ordered and/or Reviewed, Decision to Obtain Old Record, Review and Summary of Old Record Discussed - Lab Data Result diagrams: 08/19/17 10:39 08/19/17 10:40 - EKG Data -: EKG Interpreted by Me EKG: No Acute Changes, Unchanged From Previous - Radiology Data Radiology results: Report reviewed (Head CT: No acute changes.) Disposition Disposition: Transfer Clinical Impression: Ataxia of left upper extremity Disposition: Acute Care Hospital Transfer Transfer To: [facility] Reason For Transfer: CVA Accepting Physician: Renu Time Discussed w/Accepting Physician: 12:17 Condition: (2) Stable Forms: Patient Portal Access Time of Disposition: 12:17 Quality - Quality Measures Quality Measures: N/A - Blood Pressure Screening View Details: Yes Does Patient Have Any of the Following: No, Active Dx of HTN Blood Pressure Classification: Hypertensive Reading Systolic Measurement: 159 Diastolic Measurement: 73 Screening for High Blood Pressure: Patient Exclusion, Hx of HTN [G9744] Pre-Hypertensive Follow-up Interventions: Referral to alternative/primary care provider.
[2017-08-19 10:57] LABS: BASO % 0.4 % (0-6); EOS % 4.4 % (0-6); GRAN % 71.5 % (47-80); HEMATOCRIT 40.9 % (35.0-47.0); HEMOGLOBIN 12.9 gm/dl (11.6-16.0); LYMPH % 15.8 % (16-45); MEAN CELL VOLUME 91.5 fl (81-97); MEAN CORPUSCULAR HEMOGLOBIN 28.9 pg (27-33); MEAN CORPUSCULAR HGB CONC 31.5 g/dl (32-36); MEAN PLATELET VOLUME 9.5 fl (7.4-10.4); MONO % 7.9 % (0-9); PLATELET COUNT 302 K/uL (130-400); RED BLOOD COUNT 4.47 M/uL (3.80-5.40); RED CELL DISTRIBUTION WIDTH 13.9 % (11.5-14.5); WHITE BLOOD COUNT W/O DIFF 6.9 K/uL (4.2-12.2)
[2017-08-19 11:09] LABS: INR 0.94; PROTHROMBIN TIME (PATIENT) 10.1 SECONDS (9.5-12.1)
[2017-08-19] MEDS ORDERED: ASPIRIN 325 MG TAB ENTERIC-COATED PO ONE (12:03)
--- NOTE | 2017-08-19 19:35 | CT SCAN REPORT ---
EXAM: CT SCAN HEAD WO CONTRAST HISTORY: LEFT-SIDED WEAKNESS, SLURRED SPEECH, CONFUSION. TECHNIQUE: Axial CT scan of the head performed without IV contrast. COMPARISON: Head CT dated 04/27/17. FINDINGS: No definite acute intracranial hemorrhage identified. No focal mass effect or midline shift evident. Mild generalized atrophy with some chronic- appearing deep white matter changes again seen, nonspecific but likely representing some chronic small vessel deep white matter ischemic disease. There are likely small chronic lacunar infarcts in the region of the thalami bilaterally. No definite acute infarct or intracranial mass lesion is seen. There is little pneumatization of the right mastoid similar to before, which may be developmental in nature. IMPRESSION: 1. NO DEFINITE ACUTE INTRACRANIAL HEMORRHAGE OR FOCAL MASS EFFECT EVIDENT. 2. MILD GENERALIZED ATROPHY WITH CHRONIC-APPEARING DEEP WHITE MATTER CHANGES AND LIKELY SMALL CHRONIC LACUNAR INFARCTS IN THE THALAMI BILATERALLY. [facility]: [id number] [facility]
== END 2017-08-19 15:54 | disposition short-term general hospital (02) ==
LOC: ER 10:15
DX: R27.8 Other lack of coordination (principal); R47.81 Slurred speech; R53.1 Weakness; R41.0 Disorientation, unspecified; I10 Essential (primary) hypertension; I25.2 Old myocardial infarction; Z86.73 Personal history of transient ischemic attack (TIA), and cerebral infarction without residual deficits; Z87.891 Personal history of nicotine dependence
CPT/HCPCS: 70450; 80048; 85025; 85610; 85730; 93005; 93010; 99285

== ENCOUNTER 2018-03-01 04:56 | Emergency (ER) | payer MEDICARE ==
--- NOTE | 2018-03-01 05:19 | Emergency Department Record ---
History of Present Illness - General Chief complaint: Female Urogenital Problem Stated complaint: KIDNEY PROBLEMS Time Seen by Provider: 03/01/18 05:14 Source: Patient Mode of Arrival: Ambulatory Limitations: No limitations - History of Present Illness Initial comments: 77 yo female presents to ED for evaluation of right sided flank pain symptoms that began 24 hours ago. Patient reports similar symptoms with kidney stones previously, denies fevers, chills, or dysuria symptoms. Patient denies nausea/ vomiting or change in stools. Patient reports that her pain begins in ankit right lower lumbar region and extends to the left as the the RLQ anteriorly. Patient denies recent injury of trauma to the area. 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 MD Complaint: Other Onset/Timin -: Days(s) Radiation: Other (right abdomen) Severity scale (1-10): 7 Quality: Burning Consistency: Intermittent Improves with: None Worsens with: None Patient : No Associated Symptoms: Denies other symptoms - Related Data Previous Rx's Medication Instructions Recorded Cephalexin [Keflex] 500 mg PO TID #29 cap 03/01/18 Allergies Allergy/AdvReac Type Severity Reaction Status Date / Time cinoxacin [From Cinobac] Allergy HYPERSENSIT Verified 08/19/17 10:29 IVITY clindamycin Allergy HYPERSENSIT Verified 08/19/17 10:29 IVITY clindamycin HCl Allergy HYPERSENSIT Verified 08/19/17 10:29 [From Cleocin] IVITY clindamycin palmitate HCl Allergy HYPERSENSIT Verified 08/19/17 10:29 [From Cleocin] IVITY clindamycin phosphate Allergy HYPERSENSIT Verified 08/19/17 10:29 [From Cleocin] IVITY polymyxin B Allergy HYPERSENSIT Verified 08/19/17 10:29 IVITY Sulfa (Sulfonamide Allergy HYPERSENSIT Verified 08/19/17 10:29 Antibiotics) IVITY trazodone Allergy HYPERSENSIT Verified 08/19/17 10:29 IVITY Travel Screening - Travel/Exposure Within Last 30 Days Have you traveled within the last 30 days?: No - Travel Symptoms Symptom Screening: None Review of Systems Constitutional: Denies: Chills, Fever, Malaise, Night sweats Eyes: Denies: Eye discharge, Eye pain ENT: Denies: Congestion, Ear pain, Epistaxis Respiratory: Denies: Cough, Dyspnea Cardiovascular: Denies: Chest pain, Dyspnea on exertion Endocrine: Denies: Fatigue, Heat or cold intolerance Gastrointestinal: Reports: Abdominal pain. Denies: Nausea, Vomiting Genitourinary: Denies: Incontinence, Retention Musculoskeletal: Reports: Back pain. Denies: Arthralgia, Gout, Joint swelling Skin: Denies: Bruising, Change in color Neurological: Denies: Abnormal gait, Confusion, Headache, Seizure Psychiatric: Denies: Anxiety Hematological/Lymphatic: Denies: Anemia, Blood Clots Past Medical History - SOCIAL HISTORY Smoking Status: Former smoker - RESPIRATORY Hx Respiratory Disorders: Yes Hx Pneumonia: Yes - CARDIOVASCULAR Hx Cardio Disorders: Yes Hx Abnormal EKG: Yes Hx Cardiac Cath: Yes Hx Heart Attack: Yes (2011) Hx Hypertension: Yes - NEURO Hx Neuro Disorders: Yes Hx CVA: Yes (after heart attack and fall 2016) Hx Headaches: Yes Hx TIA: Yes (2011) - GI Hx GI Disorders: Yes Hx Reflux: Yes Hx Ulcer: Yes - Hx Genitourinary Disorders: Yes Hx Kidney Stones: Yes Hx UTI: Yes - ENDOCRINE Hx Endocrine Disorders: Yes Hx Thyroid Disease: Yes (hyper) - MUSCULOSKELETAL Hx Musculoskeletal Disorders: Yes - PSYCH Hx Psych Problems: Yes Hx Anxiety: Yes Hx Depression: Yes - HEMATOLOGY/ONCOLOGY Hx Hematology/Oncology Disorders: Yes Hx Blood Transfusions: Yes Hx Blood Transfusion Reaction: No Family Medical History Any Significant Family History?: Yes Hx Heart Disease: Father, Mother, Brother/Sister Hx Stroke: Mother, Grandparents Physical Exam - General General Appearance: Alert, Oriented x3, Cooperative, Moderate distress (appears uncomfortable on examination) Limitations: No limitations - Head Head exam: Atraumatic, Normocephalic, Normal inspection Head exam detail: negative: Abrasion, Contusion, Bourne's sign, General tenderness, Hematoma, Laceration - Eye Eye exam: Normal appearance. negative: Conjunctival injection, Periorbital swelling, Periorbital tenderness, Scleral icterus - ENT Ear exam: negative: Auricular hematoma, Auricular trauma Nasal Exam: negative: Active bleeding, Discharge, Dried blood, Foreign body Mouth exam: negative: Drooling, Laceration, Muffled voice, Tongue elevation - Neck Neck exam: Normal inspection. negative: Meningismus, Tenderness - Respiratory Respiratory exam: Normal lung sounds bilaterally. negative: Rales, Respiratory distress, Rhonchi, Stridor - Cardiovascular Cardiovascular Exam: Regular rate, Normal rhythm, Normal heart sounds - GI/Abdominal GI/Abdominal exam: Soft. negative: Rebound, Rigid, Tenderness - Rectal Rectal exam: Deferred - exam: Deferred - Extremities Extremities exam: Normal inspection. negative: Pedal edema, Tenderness - Back Back exam: Reports: CVA tenderness (R). Denies: CVA tenderness (L) - Neurological Neurological exam: Alert, Normal gait, Oriented X3 - Psychiatric Psychiatric exam: Normal affect, Normal mood - Skin Skin exam: Normal color. negative: Abrasion Type of lesion: negative: abrasion Course Vital Signs 03/01/18 05:06 Temperature 98.0 F Pulse Rate [ 74 Pulse Ox Probe] Respiratory 20 Rate Blood Pressure 201/92 [Left Arm] Pulse Ox 97 - Reevaluation(s) Reevaluation #1: 03/01/18 05:37 UA reviewed: >50 WBCs 4+ Bacteria 0-2 Epithelial cells 0-2 RBCs Rocephin ordered to infuse following review of the patient's UA results. Reevaluation #2: 03/01/18 05:53 CBC and comp reviewed and are grossly unremarkable for an acute process. Patient reports improvement in her pain symptoms. Reevaluation #3: 03/01/18 06:38 CT Abdomen and Pelvis: No evidence for obstructive uropathy CBD 2.1 cm, tapers normally, no stone. Diverticulosis. Patient was updated on all results, reports continued improvement in her pain symptoms, and appears stable for discharge at this time with outpatient treatment for her kidney infection. Medical Decision Making - Lab Data Result diagrams: 03/01/18 05:18 03/01/18 05:18 Disposition Disposition: Discharge Clinical Impression: Pyelonephritis Disposition: Home, Self-Care Condition: (2) Stable Instructions: Kidney Infection (ED) Additional Instructions: Return to ED if your symptoms worsen or if you have any concerns. Keflex as directed. Follow-up with your family doctor in 3-5 days as directed. Prescriptions: Cephalexin [Keflex] 500 mg PO TID #29 cap Forms: Patient Portal Access Time of Disposition: 06:40 Quality - Quality Measures Quality Measures: N/A - Blood Pressure Screening Does Patient Have Any of the Following: Active Dx of HTN Blood Pressure Classification: Hypertensive Reading Systolic Measurement: 173 Diastolic Measurement: 72 Screening for High Blood Pressure: Patient Exclusion, Hx of HTN [[id number]]
[2018-03-01 05:25] LABS: BASO % 0.7 % (0-6); EOS % 9.4 % (0-6); GRAN % 52.1 % (47-80); HEMATOCRIT 37.8 % (35.0-47.0); HEMOGLOBIN 11.7 gm/dl (11.6-16.0); LYMPH % 25.3 % (16-45); MEAN CORPUSCULAR HEMOGLOBIN 27.9 pg (27-33); MEAN PLATELET VOLUME 9.6 fl (7.4-10.4); MONO % 12.5 % (0-9); PLATELET COUNT 289 K/uL (130-400); RED CELL DISTRIBUTION WIDTH 14.6 % (11.5-14.5); WHITE BLOOD COUNT W/O DIFF 5.9 K/uL (4.2-12.2)
[2018-03-01] MEDS: 0.9 % SODIUM CHLORIDE 1000ML 500 ML IV SCH (05:26)
[2018-03-01] MEDS: ONDANSETRON HCL IV 4 MG/2 ML VIAL IVP ONE (05:26)
[2018-03-01 05:27] LABS: URINE APPEARANCE CLEAR; URINE BILIRUBIN NEGATIVE (NEGATIVE); URINE BLOOD NEGATIVE (NEGATIVE); URINE COLOR YELLOW; URINE GLUCOSE (UA) NEGATIVE (NEGATIVE); URINE KETONE NEGATIVE (NEGATIVE); URINE LEUKOCYTE ESTERASE MODERATE (NEGATIVE); URINE NITRITE NEGATIVE (NEGATIVE); URINE PROTEIN NEGATIVE (NEGATIVE); URINE UROBILINOGEN 0.2 E.U./dL (0.20 - 1.00)
[2018-03-01] MEDS: FENTANYL PF 100MCG/2ML VIAL IVP ONE (05:27)
[2018-03-01 05:35] LABS: URINE RBC 0 - 2 (NONE SEEN); URINE WBC >50 (0-2/hpf)
[2018-03-01 05:36] LABS: URINE BACTERIA 4+; URINE EPITHELIAL CELLS 0 - 2 (FEW)
[2018-03-01 05:37] LABS: BLOOD UREA NITROGEN 23 mg/dL (8-23); CREATININE 0.9 mg/dL (0.5-0.9); EST GLOMERULAR FILTRATION RATE > 60 mL/min
[2018-03-01 05:38] LABS: TOTAL PROTEIN 6.7 g/dL (6.6-8.7)
[2018-03-01 05:40] LABS: GLUCOSE,RANDOM 101 mg/dL (74-109)
[2018-03-01 05:43] LABS: ALB/GLOB RATIO 1.4 (1.1-1.8); ALBUMIN 3.9 g/dL (4.0-5.0); ALKALINE PHOSPHATASE 79 U/L (35-104); ALT/SGPT 11 U/L (<33); AST/SGOT 14 U/L (10.0-35.0); LIPASE 28 U/L (13-60)
[2018-03-01] MEDS: CEFTRIAXONE SODIUM 1 GM in 0.9 % SODIUM CHLORIDE 100ML 100 ML IVPB ONE (06:03)
--- NOTE | 2018-03-02 08:02 | CT SCAN REPORT ---
EXAM: CT OF THE ABDOMEN AND PELVIS WITHOUT CONTRAST HISTORY: RIGHT FLANK PAIN WRAPPING AROUND TO LEFT SIDE FOR TWO DAYS. TECHNIQUE: Helical CT examination of the abdomen and pelvis was performed without oral or intravenous contrast administration. Lack of oral and IV contrast utilization limits evaluation of the bowel and solid viscera respectively. Comparison: CT of the abdomen and pelvis without contrast dated 10/20/16. FINDINGS: The right hemidiaphragm remains mildly elevated. Mild linear atelectasis versus scarring is scattered within each lung base. There is also minimal dependent atelectasis within the right lung base. No pleural or pericardial effusion. The heart is mildly enlarged. Post median sternotomy changes are present. A small sliding type hiatal hernia is possible. No focal abnormality within the liver, spleen, pancreas, nor adrenal glands. The gallbladder is surgically absent. The common hepatic/common bile duct are prominent measuring up to 1.8 cm in diameter. No definite obstructing lesion is seen. No gross intrahepatic biliary ductal dilatation. This likely relates to a physiologic response to surgical absence of the gallbladder. Correlation with serum bilirubin and alkaline phosphatase levels is recommended to exclude an obstructing process. There is a mildly enlarged gastrohepatic ligament lymph node located superior to the pancreatic neck measuring 11 mm in short axis diameter. This is nonspecific though a reactive/inflammatory process is favored over malignancy. No other evidence of mediastinal or hilar mass/lymphadenopathy. The kidneys are normal in size and position. There is a too small to characterize hypodense lesion causing contour deformity within the anterior mid to upper right kidney. This measures 8 mm. It has not grossly changed in the interval and is likely a benign cyst. No other renal mass is identified. No nephrolithiasis. There is no renal collecting system dilatation. No definite calcification noted along the course of either ureter. No focal urinary bladder wall abnormality is seen. There is a tiny collection of gas in the nondependent urinary bladder lumen. Has there been recent catheterization? No pelvic mass, lymphadenopathy, or free pelvic fluid is seen. No gross bowel dilatation nor bowel wall thickening is demonstrated. The appendix is surgically absent. There is moderate diverticulosis of the distal colon without evidence of diverticulitis. Surgical clips are noted scattered within the mid to upper abdominal wall. No ventral wall hernia. There is diffuse atherosclerosis of the aorta and its branches. No gross aneurysmal dilatation is seen. No lytic or blastic bone lesion. There are degenerative changes scattered throughout the visualized spine most pronounced at the L2-L3 and L5-S1 levels where they are moderate in degree. IMPRESSION: 1. NO CT EVIDENCE OF NEPHROLITHIASIS NOR OBSTRUCTIVE UROPATHY. TINY COLLECTION OF GAS WITHIN THE NONDEPENDENT URINARY BLADDER LUMEN IS NONSPECIFIC. HAS THERE BEEN RECENT CATHETERIZATION? 2. STATUS POST CHOLECYSTECTOMY. PROMINENCE OF THE COMMON HEPATIC/COMMON BILE DUCT, DISCUSSED ABOVE. IF CLINICALLY WARRANTED, THIS COULD BE FURTHER EVALUATED WITH MRCP. 3. COLONIC DIVERTICULOSIS WITHOUT EVIDENCE OF DIVERTICULITIS. 4. STATUS POST APPENDECTOMY. 5. LINEAR SCARRING VERSUS ATELECTASIS SCATTERED WITHIN EACH LUNG BASE. 6. MILD CARDIOMEGALY POST MEDIAN STERNOTOMY. POSSIBLE SMALL SLIDING TYPE HIATAL HERNIA. JOB NUMBER: [id number] MTDD
== END 2018-03-01 06:58 | disposition home or self-care (01) ==
LOC: ER 04:56
DX: N10 Acute pyelonephritis (principal); R10.31 Right lower quadrant pain; M54.5 Low back pain; I10 Essential (primary) hypertension; I25.2 Old myocardial infarction; Z87.442 Personal history of urinary calculi; Z87.891 Personal history of nicotine dependence; Z79.01 Long term (current) use of anticoagulants; Z86.73 Personal history of transient ischemic attack (TIA), and cerebral infarction without residual deficits
CPT/HCPCS: 74176; 80053; 81001; 83690; 85025; 96365; 96375; 99284; J2405; J7030

== ENCOUNTER 2018-03-03 08:48 | Emergency (ER) | payer MEDICARE ==
--- NOTE | 2018-03-03 08:56 | Emergency Department Record ---
History of Present Illness - General Chief complaint: Flank Pain Stated complaint: KIDNEY INFECTION PAIN WORSE Time Seen by Provider: 03/03/18 08:53 Source: Patient Mode of Arrival: Ambulatory Limitations: No limitations - History of Present Illness Initial comments: 77 yo female presents with right flank pain for about 5 days. She states she was diagnosed with a UTI on Tuesday. She is on keflex. The side pain and frequency have not improved. No fever. No hematuria. No nausea or vomiting. No diarrhea. No retention. She has not taken anything for pain at home. No rash. She has not had a chance to contact her doctor for close follow up yet. She has a prior history of renal stones. She did have a CT scan her first ED visit. The scan was negative for renal stones. The UA demonstrated +4 bacteria >50 WBCs. The culture and sensitivity are pending this morning. MD Complaint: Dysuria Onset/Timin -: Days(s) Radiation: L flank, R flank Severity: Moderate Quality: Aching Improves with: None Worsens with: None Associated Symptoms: Dysuria - Related Data Previous Rx's Medication Instructions Recorded Cephalexin [Keflex] 500 mg PO TID #29 cap 03/01/18 Ciprofloxacin HCl [Cipro] 500 mg PO Q12HR #20 tablet 03/03/18 Hydrocodone/APAP 5/325Mg [[place] 1 each PO Q6H #12 tab 03/03/18 5Mg/325Mg] Allergies Allergy/AdvReac Type Severity Reaction Status Date / Time cinoxacin [From Cinobac] Allergy HYPERSENSIT Verified 03/03/18 08:57 IVITY clindamycin Allergy HYPERSENSIT Verified 03/03/18 08:57 IVITY clindamycin HCl Allergy HYPERSENSIT Verified 03/03/18 08:57 [From Cleocin] IVITY clindamycin palmitate HCl Allergy HYPERSENSIT Verified 03/03/18 08:57 [From Cleocin] IVITY clindamycin phosphate Allergy HYPERSENSIT Verified 03/03/18 08:57 [From Cleocin] IVITY polymyxin B Allergy HYPERSENSIT Verified 03/03/18 08:57 IVITY Sulfa (Sulfonamide Allergy HYPERSENSIT Verified 03/03/18 08:57 Antibiotics) IVITY trazodone Allergy HYPERSENSIT Verified 03/03/18 08:57 IVITY Travel Screening - Travel/Exposure Within Last 30 Days Have you traveled within the last 30 days?: No - Travel/Exposure Within Last Year Have you traveled outside the [place] in the last year?: No - Additonal Travel Details Have you been exposed to anyone with a communicable illness?: No - Travel Symptoms Symptom Screening: None Review of Systems Constitutional: Denies: Chills, Fever, Malaise Eyes: Denies: Eye discharge ENT: Denies: Congestion, Throat pain Respiratory: Denies: Cough, Dyspnea Cardiovascular: Denies: Chest pain, Palpitations, Syncope Endocrine: Denies: Fatigue Gastrointestinal: Reports: As per HPI, Abdominal pain. Denies: Diarrhea, Nausea , Vomiting Genitourinary: Reports: Dysuria, Frequency, Urgency. Denies: Discharge, Hematuria, Incontinence, Retention Musculoskeletal: Reports: Back pain. Denies: Arthralgia Skin: Denies: Bruising, Change in color, Rash Neurological: Denies: Numbness, Weakness Psychiatric: Denies: Anxiety Hematological/Lymphatic: Denies: Blood Clots, Easy bleeding, Easy bruising Past Medical History - SOCIAL HISTORY Smoking Status: Former smoker Alcohol Use: None Drug Use: None - RESPIRATORY Hx Respiratory Disorders: Yes Hx Pneumonia: Yes - CARDIOVASCULAR Hx Cardio Disorders: Yes Hx Abnormal EKG: Yes Hx Cardiac Cath: Yes Hx Heart Attack: Yes (2011) Hx Hypertension: Yes - NEURO Hx Neuro Disorders: Yes Hx CVA: Yes (after heart attack and fall 2016) Hx Headaches: Yes Hx TIA: Yes (2011) - GI Hx GI Disorders: Yes Hx Reflux: Yes Hx Ulcer: Yes - Hx Genitourinary Disorders: Yes Hx Kidney Stones: Yes Hx UTI: Yes - ENDOCRINE Hx Endocrine Disorders: Yes Hx Thyroid Disease: Yes (hyper) - MUSCULOSKELETAL Hx Musculoskeletal Disorders: Yes - PSYCH Hx Psych Problems: Yes Hx Anxiety: Yes Hx Depression: Yes - HEMATOLOGY/ONCOLOGY Hx Hematology/Oncology Disorders: Yes Hx Blood Transfusions: Yes Hx Blood Transfusion Reaction: No Family Medical History Any Significant Family History?: Yes Hx Heart Disease: Father, Mother, Brother/Sister Hx Stroke: Mother, Grandparents Physical Exam - General General Appearance: Alert, Oriented x3, Cooperative, No acute distress Limitations: No limitations - Head Head exam: Normal inspection - Eye Eye exam: Normal appearance. negative: Conjunctival injection - ENT ENT exam: Normal exam Ear exam: Normal external inspection Nasal Exam: Normal inspection Mouth exam: Normal external inspection - Neck Neck exam: Normal inspection, Full ROM. negative: Tenderness - Respiratory Respiratory exam: Normal lung sounds bilaterally. negative: Respiratory distress - Cardiovascular Cardiovascular Exam: Regular rate, Normal rhythm, Normal heart sounds - GI/Abdominal GI/Abdominal exam: Soft, Normal bowel sounds. negative: Distended, Guarding, Rebound, Rigid, Tenderness - Rectal Rectal exam: Deferred - exam: Deferred - Back Back exam: Reports: Normal inspection, CVA tenderness (R), Full ROM, Tenderness. Denies: CVA tenderness (L), Muscle spasm - Neurological Neurological exam: Alert, Normal gait, Oriented X3, Reflexes normal - Psychiatric Psychiatric exam: Normal affect, Normal mood Course - Reevaluation(s) Reevaluation #1: The UA cultures from 2017 were reviewed. E. coli. She had mixed sensitivities. Macrobid will be added until cultures return. 03/03/18 09:20 03/03/18 09:36 [facility] was utilized. The Preliminary Culture demonstrates Klebsiella Oxytoca. No sensitivity. 03/03/18 09:38 The CBC was reviewed. No acute changes. The UA was reviewed. Normal UA. No fever, tachycardia in the ED. 03/03/18 09:40 [facility] was contacted. The prelim sensitivities are returning. Intermediate to cefazolin. The UA is sensitive to Cipro and Nitrofurantoin. 03/03/18 09:41 03/03/18 09:55 We discussed the results of the tests and questions were answered at the time of discharge. We discussed the urine sensitivities. She has been on Cipro several times. This will be provided for home. The patient is doing well and is comfortable with DC. DC vitals were reviewed. We discussed at length reasons to immediately return to the ED as well as close follow up. The patient will call the PCP for close follow up of this ED visit to review this visit and the tests performed 03/03/18 10:03 03/03/18 10:07 The pain is well controlled 03/03/18 10:24 No acute changes on BMP 03/03/18 10:24 The patient continues to do very well with controlled pain. Waiting for remaining labs. Medical Decision Making - Lab Data Result diagrams: 03/03/18 09:08 03/03/18 09:08 Disposition Disposition: Discharge Clinical Impression: UTI (urinary tract infection), Pyelonephritis Disposition: Home, Self-Care Condition: (1) Good Instructions: Urinary Tract Infection in Women (ED) Additional Instructions: Return to the ER if you have any fever, uncontrolled pain, vomiting or concerns with your antibiotics Add Cipro to your Keflex Call your doctor to be seen first of the week Prescriptions: Ciprofloxacin HCl [Cipro] 500 mg PO Q12HR #20 tablet Hydrocodone/APAP 5/325Mg [[place] 5Mg/325Mg] 1 each PO Q6H #12 tab Forms: Patient Portal Access Time of Disposition: 10:25 Quality - Quality Measures Quality Measures: N/A - Blood Pressure Screening Does Patient Have Any of the Following: Active Dx of HTN Blood Pressure Classification: Hypertensive Reading Systolic Measurement: 149 Diastolic Measurement: 53 Screening for High Blood Pressure: Patient Exclusion, Hx of HTN [G9744]
[2018-03-03] MEDS ORDERED: ONDANSETRON HCL IV 4 MG/2 ML VIAL IVP ONE (09:08)
[2018-03-03] MEDS ORDERED: MORPHINE SULFATE 10 MG/ML VIAL IVP ONE (09:08)
[2018-03-03] MEDS ORDERED: 0.9 % SODIUM CHLORIDE 1,000 ML BAG IV ONE (09:14)
[2018-03-03 09:15] LABS: URINE APPEARANCE CLEAR; URINE BILIRUBIN NEGATIVE (NEGATIVE); URINE BLOOD NEGATIVE (NEGATIVE); URINE COLOR YELLOW; URINE GLUCOSE (UA) NEGATIVE (NEGATIVE); URINE KETONE NEGATIVE (NEGATIVE); URINE LEUKOCYTE ESTERASE NEGATIVE (NEGATIVE); URINE NITRITE NEGATIVE (NEGATIVE); URINE PROTEIN NEGATIVE (NEGATIVE); URINE UROBILINOGEN 0.2 E.U./dL (0.20 - 1.00)
[2018-03-03 09:20] LABS: BASO % 0.7 % (0-6); EOS % 6.1 % (0-6); GRAN % 64.2 % (47-80); HEMOGLOBIN 12.1 gm/dl (11.6-16.0); LYMPH % 19.2 % (16-45); MEAN CELL VOLUME 90.3 fl (81-97); MEAN PLATELET VOLUME 9.6 fl (7.4-10.4); MONO % 9.8 % (0-9); PLATELET COUNT 289 K/uL (130-400); RED BLOOD COUNT 4.32 M/uL (3.80-5.40); RED CELL DISTRIBUTION WIDTH 14.8 % (11.5-14.5); WHITE BLOOD COUNT W/O DIFF 5.7 K/uL (4.2-12.2)
[2018-03-03] MEDS ORDERED: NITROFURANTOIN MONO 100 MG CAPSULE PO ONE (09:20)
[2018-03-03 10:21] LABS: BLOOD UREA NITROGEN 14 mg/dL (8-23); CREATININE 0.8 mg/dL (0.5-0.9); EST GLOMERULAR FILTRATION RATE > 60 mL/min
[2018-03-03 10:22] LABS: TOTAL PROTEIN 7.3 g/dL (6.6-8.7)
[2018-03-03 10:24] LABS: GLUCOSE,RANDOM 105 mg/dL (74-109)
[2018-03-03 10:27] LABS: ALB/GLOB RATIO 1.3 (1.1-1.8); ALBUMIN 4.1 g/dL (4.0-5.0); ALKALINE PHOSPHATASE 84 U/L (35-104); ALT/SGPT 13 U/L (<33); AST/SGOT 17 U/L (10.0-35.0)
== END 2018-03-03 11:18 | disposition home or self-care (01) ==
LOC: ER 08:48
DX: N10 Acute pyelonephritis (principal); N39.0 Urinary tract infection, site not specified; I10 Essential (primary) hypertension; I25.2 Old myocardial infarction; Z87.891 Personal history of nicotine dependence
CPT/HCPCS: 99284 ×2; 96374; 96375; 85025; 80053; 81003; J2405; J2270; J7030

== ENCOUNTER 2019-02-14 09:39 | Emergency (ER) | payer MEDICARE ==
[2019-02-14 10:19] LABS: URINE BILIRUBIN NEGATIVE (NEGATIVE); URINE BLOOD TRACE-I (NEGATIVE); URINE COLOR YELLOW; URINE GLUCOSE (UA) NEGATIVE (NEGATIVE); URINE KETONE NEGATIVE (NEGATIVE); URINE LEUKOCYTE ESTERASE LARGE (NEGATIVE); URINE NITRITE NEGATIVE (NEGATIVE); URINE PROTEIN TRACE (NEGATIVE); URINE UROBILINOGEN 0.2 E.U./dL (0.20 - 1.00)
[2019-02-14 10:29] LABS: URINE APPEARANCE CLOUDY
[2019-02-14 10:30] LABS: URINE BACTERIA 3+; URINE RBC 0 - 2 (NONE SEEN); URINE SQUAMOUS EPITHELIAL CELL 0 - 2 /hpf
--- NOTE | 2019-02-14 10:35 | Emergency Department Record ---
History of Present Illness - General Chief complaint: Female Urogenital Problem Stated complaint: BLADDER INFECTION Time Seen by Provider: 02/14/19 10:02 Source: Patient Mode of Arrival: Ambulatory - History of Present Illness Initial comments: for one week and she denies any blood and she has had UTI 's before. She is ambulating to the bathroom without problems. No vomiting or diarrhea MD Complaint: Dysuria Onset/Timin -: Week(s) Quality: Burning Consistency: Getting worse Worsens with: Urination Associated Symptoms: Dysuria - Related Data Previous Rx's Medication Instructions Recorded Hydrocodone/APAP 5/325Mg [Maxie 1 each PO Q6H #12 tab 03/03/18 5Mg/325Mg] Cephalexin [Keflex] 500 mg PO QID #40 cap 02/14/19 Allergies Allergy/AdvReac Type Severity Reaction Status Date / Time cinoxacin [From Cinobac] Allergy HYPERSENSIT Verified 02/14/19 09:49 IVITY clindamycin Allergy HYPERSENSIT Verified 02/14/19 09:49 IVITY clindamycin HCl Allergy HYPERSENSIT Verified 02/14/19 09:49 [From Cleocin] IVITY clindamycin palmitate HCl Allergy HYPERSENSIT Verified 02/14/19 09:49 [From Cleocin] IVITY clindamycin phosphate Allergy HYPERSENSIT Verified 02/14/19 09:49 [From Cleocin] IVITY polymyxin B Allergy HYPERSENSIT Verified 02/14/19 09:49 IVITY Sulfa (Sulfonamide Allergy HYPERSENSIT Verified 02/14/19 09:49 Antibiotics) IVITY trazodone Allergy HYPERSENSIT Verified 02/14/19 09:49 IVITY Travel Screening - Travel/Exposure Within Last 30 Days Have you traveled within the last 30 days?: No - Travel/Exposure Within Last Year Have you traveled outside the [place] in the last year?: No - Additonal Travel Details Have you been exposed to anyone with a communicable illness?: No - Travel Symptoms Symptom Screening: None Review of Systems Reviewed: No additional complaints except as noted below Constitutional: Reports: As per HPI. Denies: Chills, Fever, Malaise, Night sweats, Weakness, Weight change Eyes: Reports: As per HPI. Denies: Eye discharge, Eye pain, Photophobia, Vision change ENT: Reports: As per HPI. Denies: Congestion, Dental pain, Ear pain, Epistaxis, Hearing loss, Throat pain Respiratory: Reports: As per HPI. Denies: Cough, Dyspnea, Hemoptysis, Stridor, Wheezes Cardiovascular: Reports: As per HPI. Denies: Arrhythmia, Chest pain, Dyspnea on exertion, Edema, Murmurs, Orthopnea, Palpitations, Paroxysmal nocturnal dyspnea, Rheumatic Fever, Syncope Endocrine: Reports: As per HPI. Denies: Fatigue, Heat or cold intolerance, Polydipsia, Polyuria Gastrointestinal: Reports: As per HPI. Denies: Abdominal pain, Constipation, Diarrhea, Hematemesis, Hematochezia, Melena, Nausea, Vomiting Genitourinary: Reports: As per HPI, Dysuria, Frequency. Denies: Abnormal menses, Discharge, Dyspareunia, Hematuria, Incontinence, Retention, Urgency Musculoskeletal: Reports: As per HPI. Denies: Arthralgia, Back pain, Gout, Joint swelling, Myalgia, Neck pain Skin: Reports: As per HPI. Denies: Bruising, Change in color, Change in hair/nails, Lesions, Pruritus, Rash Neurological: Reports: As per HPI. Denies: Abnormal gait, Confusion, Headache, Numbness, Paresthesias, Seizure, Tingling, Tremors, Vertigo, Weakness Psychiatric: Reports: As per HPI. Denies: Anxiety, Auditory hallucinations, Depression, Homicidal thoughts, Suicidal thoughts, Visual hallucinations Hematological/Lymphatic: Reports: As per HPI. Denies: Anemia, Blood Clots, Easy bleeding, Easy bruising, Swollen glands Past Medical History - SOCIAL HISTORY Smoking Status: Former smoker Alcohol Use: None Drug Use: None - RESPIRATORY Hx Respiratory Disorders: Yes Hx Pneumonia: Yes - CARDIOVASCULAR Hx Cardio Disorders: Yes Hx Abnormal EKG: Yes Hx Cardiac Cath: Yes Hx Heart Attack: Yes (2011) Hx Hypertension: Yes - NEURO Hx Neuro Disorders: Yes Hx CVA: Yes (after heart attack and fall 2017) Hx Headaches: Yes Hx TIA: Yes (2011) - GI Hx GI Disorders: Yes Hx Reflux: Yes Hx Ulcer: Yes - Hx Genitourinary Disorders: Yes Hx Kidney Stones: Yes Hx UTI: Yes - ENDOCRINE Hx Endocrine Disorders: Yes Hx Thyroid Disease: Yes (hyper) - MUSCULOSKELETAL Hx Musculoskeletal Disorders: Yes - PSYCH Hx Psych Problems: Yes Hx Anxiety: Yes Hx Depression: Yes - HEMATOLOGY/ONCOLOGY Hx Hematology/Oncology Disorders: Yes Hx Blood Transfusions: Yes Hx Blood Transfusion Reaction: No Family Medical History Any Significant Family History?: Yes Hx Heart Disease: Father, Mother, Brother/Sister Hx Stroke: Mother, Grandparents Physical Exam - General General Appearance: Alert, Oriented x3, Cooperative, No acute distress - Head Head exam: Normal inspection - Eye Eye exam: Normal appearance, PERRL Pupils: Normal accommodation - ENT ENT exam: Normal exam, Mucous membranes moist, Normal external ear exam, Normal orophraynx, TM's normal bilaterally Ear exam: Normal external inspection. negative: External canal tenderness Nasal Exam: Normal inspection. negative: Discharge, Sinus tenderness Mouth exam: Normal external inspection, Tongue normal Teeth exam: Normal inspection. negative: Dental caries Throat exam: Normal inspection. negative: Tonsillar erythema, Tonsillar exudate - Neck Neck exam: Normal inspection, Full ROM. negative: Tenderness - Respiratory Respiratory exam: Normal lung sounds bilaterally. negative: Respiratory distress - Cardiovascular Cardiovascular Exam: Regular rate, Normal rhythm, Normal heart sounds - GI/Abdominal GI/Abdominal exam: Soft, Normal bowel sounds, Tenderness (suprapubic pain only with urination) - Rectal Rectal exam: Deferred - exam: Deferred - Extremities Extremities exam: Normal inspection, Full ROM, Normal capillary refill. negative: Tenderness - Back Back exam: Reports: Normal inspection, Full ROM. Denies: Muscle spasm, Rash noted, Tenderness - Neurological Neurological exam: Alert, Normal gait, Oriented X3, Reflexes normal - Psychiatric Psychiatric exam: Normal affect, Normal mood - Skin Skin exam: Dry, Intact, Normal color, Warm Course Vital Signs 02/14/19 09:53 Temperature 97.5 F L Pulse Rate 64 Respiratory 18 Rate Blood Pressure 124/72 Pulse Ox 93 L Medical Decision Making - Data Complexity MDM Data: Labs Ordered and/or Reviewed (UA wbc TNTC) Disposition Clinical Impression: Dysuria UTI (urinary tract infection) Qualifiers: Urinary tract infection type: acute cystitis Hematuria presence: without hematuria Qualified Code(s): N30.00 - Acute cystitis without hematuria Disposition: Home, Self-Care Condition: (1) Good Instructions: Urinary Tract Infection in Women (ED), Urinary Traction Infection in Older Adults (ED) Prescriptions: Cephalexin [Keflex] 500 mg PO QID #40 cap Time of Disposition: 10:41 Quality - Quality Measures Quality Measures: N/A - Blood Pressure Screening Does Patient Have Any of the Following: No, Active Dx of HTN Blood Pressure Classification: Pre-Hypertensive BP Reading Systolic Measurement: 124 Diastolic Measurement: 72 Screening for High Blood Pressure: Patient Exclusion, Hx of HTN [G9744]
[2019-02-14] MEDS ORDERED: CEPHALEXIN 500 MG CAPSULE PO STA (10:39)
== END 2019-02-14 10:54 | disposition home or self-care (01) ==
LOC: ER 09:39
DX: N30.00 Acute cystitis without hematuria (principal); I10 Essential (primary) hypertension; Z87.891 Personal history of nicotine dependence
CPT/HCPCS: 81001; 99282

== ENCOUNTER 2019-09-24 15:06 | Emergency (ER) | payer MEDICARE ==
[2019-09-24] MEDS ORDERED: PANTOPRAZOLE SODIUM IV 40 MG VIAL IVP ONE (15:21)
--- NOTE | 2019-09-24 15:48 | Emergency Department Record ---
History of Present Illness - General Chief complaint: Rectal bleeding Stated complaint: RECTAL BLEEDING /PAIN Time Seen by Provider: 09/24/19 15:08 Source: Patient Mode of Arrival: Ambulatory Limitations: No limitations - History of Present Illness Initial comments: 79 yo female presents after 3 bloody stools today. She reports she has been having intermittent lower abdominal pain for about 3 weeks. Today was the first time she passed any blood. She is on Plavix for a history of CAD and CVA. She denies any vomiting but she has had nausea. She states she is aware that she has diverticulosis. No dysuria. No fever that she is aware of. No significant history of GI bleed. She has passed some blood before but it has been many years. Dr Phoenix is her PCP. His office closed. She has been without her BP medication. MD complaint: Gross hematochezia Onset/Timin -: Hour(s) Severity scale (1-10): 6 Improves with: None Worsens with: Bowel movement Context: Other Associated Symptoms: Other Treatments Prior to Arrival: None - Related Data Allergies Allergy/AdvReac Type Severity Reaction Status Date / Time cinoxacin [From Cinobac] Allergy HYPERSENSIT Verified 09/24/19 16:07 IVITY clindamycin Allergy HYPERSENSIT Verified 09/24/19 16:07 IVITY clindamycin HCl Allergy HYPERSENSIT Verified 09/24/19 16:07 [From Cleocin] IVITY polymyxin B Allergy HYPERSENSIT Verified 09/24/19 16:07 IVITY Sulfa (Sulfonamide Allergy HYPERSENSIT Verified 09/24/19 16:07 Antibiotics) IVITY trazodone Allergy HYPERSENSIT Verified 09/24/19 16:07 IVITY Travel/Exposure Screening - Travel/Exposure Within Last 30 Days Have you traveled within the last 30 days?: No - Travel/Exposure Within Last Year Have you traveled outside the [place] in the last year?: No - Additonal Travel/Exposure Details Have you been exposed to anyone with a communicable illness?: No - Travel Symptoms Symptom Screening: None Review of Systems Constitutional: Denies: Chills, Fever, Malaise, Weakness Eyes: Denies: Eye discharge ENT: Denies: Congestion, Throat pain Respiratory: Denies: Cough, Dyspnea Cardiovascular: Denies: Chest pain, Palpitations, Syncope Endocrine: Denies: Fatigue, Polydipsia, Polyuria Gastrointestinal: Reports: Abdominal pain, Diarrhea, Hematochezia, Nausea. Den ies: Constipation, Hematemesis, Melena, Vomiting Genitourinary: Denies: Dysuria, Urgency Musculoskeletal: Denies: Arthralgia, Back pain, Myalgia, Neck pain Skin: Denies: Bruising, Change in color, Rash Neurological: Denies: Headache, Numbness, Weakness Psychiatric: Denies: Anxiety Hematological/Lymphatic: Denies: Easy bleeding, Easy bruising Past Medical History - SOCIAL HISTORY Smoking Status: Former smoker Alcohol Use: None Drug Use: None - RESPIRATORY Hx Respiratory Disorders: Yes Hx Pneumonia: Yes - CARDIOVASCULAR Hx Cardio Disorders: Yes Hx Abnormal EKG: Yes Hx Cardiac Cath: Yes Hx Heart Attack: Yes (2011) Hx Hypertension: Yes - NEURO Hx Neuro Disorders: Yes Hx CVA: Yes (after heart attack and fall 2016) Hx Headaches: Yes Hx TIA: Yes (2011) - GI Hx GI Disorders: Yes Hx Reflux: Yes Hx Ulcer: Yes - Hx Genitourinary Disorders: Yes Hx Kidney Stones: Yes Hx UTI: Yes - ENDOCRINE Hx Endocrine Disorders: Yes Hx Thyroid Disease: Yes (hyper) - MUSCULOSKELETAL Hx Musculoskeletal Disorders: Yes - PSYCH Hx Psych Problems: Yes Hx Anxiety: Yes Hx Depression: Yes - HEMATOLOGY/ONCOLOGY Hx Hematology/Oncology Disorders: Yes Hx Blood Transfusions: Yes Hx Blood Transfusion Reaction: No Family Medical History Any Significant Family History?: Yes Hx Heart Disease: Father, Mother, Brother/Sister Hx Stroke: Mother, Grandparents Physical Exam - General General Appearance: Alert, Oriented x3, Cooperative, No acute distress Limitations: No limitations - Head Head exam: Atraumatic, Normal inspection - Eye Eye exam: Normal appearance. negative: Conjunctival injection, Scleral icterus - ENT ENT exam: Normal exam, Mucous membranes moist Ear exam: Normal external inspection Nasal Exam: Normal inspection Mouth exam: Normal external inspection Teeth exam: Normal inspection - Neck Neck exam: Normal inspection - Respiratory Respiratory exam: Normal lung sounds bilaterally. negative: Accessory muscle use, Decreased breath sounds, Prolonged expiratory, Respiratory distress, R honchi, Stridor, Wheezes - Cardiovascular Cardiovascular Exam: Regular rate, Normal rhythm, Normal heart sounds - GI/Abdominal GI/Abdominal exam: Soft, Normal bowel sounds, Tenderness (Tender lower abdomen. Otherwise very soft abdomen. No mass. ). negative: Diminished bowel sounds, Distended, Guarding, Pulsatile mass - Rectal Rectal exam: Heme (+) stool, Normal inspection, Normal rectal tone. negative: Black stool, Bloody stool, Decreased rectal tone, Fecal impaction, Heme (-) stool, Hemorrhoids, Mass, Tenderness - exam: Deferred - Extremities Extremities exam: Normal inspection. negative: Calf tenderness, Pedal edema, Tenderness - Back Back exam: Denies: CVA tenderness (R), CVA tenderness (L) - Neurological Neurological exam: Alert, Oriented X3 - Psychiatric Psychiatric exam: Normal affect, Normal mood. negative: Agitated, Anxious - Skin Skin exam: Dry, Intact, Normal color, Warm Course Vital Signs 09/24/19 15:11 Temperature 98.1 F Pulse Rate 106 H Respiratory 20 Rate Blood Pressure 212/109 Pulse Ox 97 - Reevaluation(s) Reevaluation #1: 09/24/19 15:59 The Rectal examination was completed Normal external inspection She did not have any stool or gross blood on NOA but she was Heme positive with a positive control. 09/24/19 16:12 Hgb is 11.7 09/24/19 16:22 The CMP was reviewed No acute abnormality The lactic acid is normal at 1.2 09/24/19 18:[address] was reviewed. Diffuse colitis, most pronounced in the descending colon, diverticulosis, severe atherosclerotic disease of the aorta, celiac, proximal SMA and right renal artery and left renal artery, ectatic abdominal aorta 2.6cm. Given the abdominal pain, bloody stools, and the CT finding I recommend transfer to a hospital with surgery, GI and additional resources she will need. She agrees with [facility]. General Surgery was paged to discuss the case. 09/24/19 18:[address] Shrestha of general surgery. He agrees with transfer and will con sult at [facility] was contacted to discuss with IM at [facility]. The patient reports her last dose of Plavix was 8 am this morning. 09/24/19 19:[address] Doan of IM at [facility]. He accepts the patient for transfer to [facility] Medical Decision Making - Lab Data Result diagrams: 09/24/19 15:50 09/24/19 15:50 Disposition Disposition: Transfer Clinical Impression: Atherosclerotic vascular disease GI bleed Qualifiers: GI bleed type/associated pathology: unspecified gastrointestinal hemorrhage type Qualified Code(s): K92.2 - Gastrointestinal hemorrhage, unspecified Hypertension Qualifiers: Hypertension type: unspecified Qualified Code(s): I10 - Essential (primary) hypertension Abdominal pain Qualifiers: Abdominal location: unspecified location Qualified Code(s): R10.9 - Unspecified abdominal pain Disposition: Acute Care Hospital Transfer Transfer To: [facility] Reason For Transfer: GI Bleed, Abdominal pain Accepting Physician: Olimpia Time Discussed w/Accepting Physician: 18:52 Condition: (2) Stable Forms: Patient Portal Access Time of Disposition: 18:38 Quality - Quality Measures Quality Measures: N/A - Blood Pressure Screening Does Patient Have Any of the Following: Active Dx of HTN Blood Pressure Classification: Hypertensive Reading Systolic Measurement: 212 Diastolic Measurement: 109 Screening for High Blood Pressure: Patient Exclusion, Hx of HTN [G9744]
[2019-09-24] MEDS ORDERED: 0.9 % SODIUM CHLORIDE 1,000 ML BAG IV ONE (15:59)
[2019-09-24 16:03] LABS: ABSOLUTE NEUTROPHIL COUNT 10.27; HEMATOCRIT 39.1 % (35.0-47.0); HEMOGLOBIN 11.8 gm/dl (11.6-16.0); MEAN CORPUSCULAR HEMOGLOBIN 25.7 pg (27-33); MEAN CORPUSCULAR HGB CONC 30.2 g/dl (32-36); MEAN PLATELET VOLUME 9.3 fl (7.4-10.4); PLATELET COUNT 344 K/uL (130-400); RED CELL DISTRIBUTION WIDTH 16.5 % (11.5-14.5); WHITE BLOOD COUNT W/O DIFF 11.7 K/uL (4.2-12.2)
[2019-09-24 16:12] LABS: BLOOD UREA NITROGEN 16 mg/dL (8-23); CREATININE 0.9 mg/dL (0.5-0.9); EST GLOMERULAR FILTRATION RATE > 60 mL/min; PLATELET ESTIMATE NORMAL (NORMAL)
[2019-09-24 16:13] LABS: TOTAL PROTEIN 6.6 g/dL (6.6-8.7)
[2019-09-24 16:15] LABS: GLUCOSE,RANDOM 149 mg/dL (74-109)
[2019-09-24 16:17] LABS: ALT/SGPT 12 U/L (<33); AST/SGOT 15 U/L (10.0-35.0)
[2019-09-24 16:18] LABS: ALB/GLOB RATIO 1.4 (1.1-1.8); ALBUMIN 3.8 g/dL (4.0-5.0); ALKALINE PHOSPHATASE 100 U/L (35-104)
[2019-09-24 16:21] LABS: PARTIAL THROMBOPLASTIN TIME 25.3 SECONDS (24.5-39.1)
[2019-09-24] MEDS ORDERED: ACETAMINOPHEN 1,000 MG/100 ML BTL IVPB ONE (17:44)
--- NOTE | 2019-09-24 18:22 | CT SCAN REPORT ---
EXAMINATION: CT Abdomen and Pelvis with IV Contrast EXAM DATE: 09/24/2019 5:44 PM TECHNIQUE: CT imaging of the abdomen and pelvis was performed with intravenous contrast. Coronal and sagittal images were reconstructed. IV Contrast: The amount and type of contrast are recorded in the medical record. INDICATION: low abdominal pain, blood in stools COMPARISON: CT abdomen pelvis 03/01/2018 ENCOUNTER: Not applicable CT ABDOMEN AND PELVIS FINDINGS: Lung Bases: Atherosclerotic calcification of the coronary arteries and descending thoracic aorta. Vis ualized lung bases clear. Hepatobiliary: Unchanged subcentimeter hypodensity in the right hepatic lobe, likely cyst or hemangio ma. 1.4 cm common bile duct again noted, may be related to prior cholecystectomy. Pancreas: The pancreas is normal. Spleen: The spleen is not enlarged. Adrenals: The adrenal glands are normal. Kidneys, Ureters, & Bladder: A few small right renal cysts. Unremarkable left kidney. Unremarkable u reters, urinary bladder. Gastrointestinal: Small hiatal hernia. Unremarkable small bowel. Diffuse thickening of the colon, mos t prominent in the descending colon, consistent with colitis. Colonic diverticulosis without focally inflamed diverticulum. Appendectomy. Reproductive Organs: Uterus, ovaries unremarkable Lymphatic System: No pathologic enlargement. Vasculature: Atherosclerotic calcification of the abdominal aorta and its branches. Severe narrowing at the origin of the celiac artery, and the proximal SMA, and the proximal right renal artery, and in the proximal left renal artery again noted. Ectatic infrarenal abdominal aorta measuring 2.6 cm. Peritoneum: No free air. No free fluid. Abdominal Wall & Musculoskeletal: Prior median sternotomy. Degenerative changes in the visualized sp ine. IMPRESSION: 1. Diffuse colitis, most pronounced in the descending colon. 2. Colonic diverticulosis. 3. Severe calcific atherosclerotic disease as described. Ectatic infrarenal abdominal aorta. 4. Other findings as above. Dictated by: Sandy Henriquez MD on 09/24/2019 6:01 PM. .
== END 2019-09-24 19:48 | disposition short-term general hospital (02) ==
LOC: ER 15:06
DX: I77.811 Abdominal aortic ectasia (principal); K57.33 Diverticulitis of large intestine without perforation or abscess with bleeding; R10.30 Lower abdominal pain, unspecified; R11.0 Nausea; I25.10 Atherosclerotic heart disease of native coronary artery without angina pectoris; I10 Essential (primary) hypertension; Z87.891 Personal history of nicotine dependence; Z79.02 Long term (current) use of antithrombotics/antiplatelets; I25.2 Old myocardial infarction
CPT/HCPCS: 99285 ×2; 96365; 96375; 83605; 85730; 85610; 80053; 85027; 74177; Q9967; C9113; J7030